=== PATIENT | female | born 1960 | race Caucasian/White ===

== ENCOUNTER → 2018-01-23 16:49 | Outpatient (CLI) | payer OTHER, SELFPAY ==
--- NOTE | 2018-01-23 16:51 | MM_ITS ---
MM Dig screening mamm BI w/CAD ORDERING PHYSICIAN : Taiwo Sandoval MD PATIENT AGE: 57 years GENDER: Female COMPARISON: June 2015, April 2010, April 2009 INDICATION: ITS.REASON: Routine Screening Mammorgram no hormones. No new complaints. Family history: paternal aunt with breast cancer TECHNIQUE: Standard CC and MLO images were obtained. R2 CAD reviewed. FINDINGS: Minimal residual fibroglandular elements. No dominant mass nor suspicious calcifications in either breast. . No significant change since previous studies bilateral follow-up in one year the adequate . IMPRESSION: Stable bilateral mammogram with no significant new findings. Bilateral follow-up in one year recommended. BI-RADS Category: 1 Negative RECOMMENDED FOLLOW-UP: 1YR 1 YEAR FOLLOW-UP (A letter has been sent to the patient regarding results of the study.)
== END ==
PROVIDERS: PCP Family Medicine; Visit Provider Nurse Practitioner Obstetrics & Gynecology
DX: Z12.31 Encounter for screening mammogram for malignant neoplasm of breast (principal)
CPT/HCPCS: 77067

== ENCOUNTER → 2019-03-29 15:13 | Outpatient (CLI) | payer OTHER, SELFPAY ==
--- NOTE | 2019-03-29 15:17 | MM_ITS ---
PROCEDURE: MM DIG SCREENING MAMM BI W/CAD CLINICAL INDICATION: screening mammogram There is a history of breast cancer patient's paternal aunt. COMPARISON: [facility] DIGITAL MAMM-SCREEN BILATERAL from 05/22/2010 [facility] DIG MAMM-SCREEN ARMANDO from 07/04/2015 [facility] MM Dig screening mamm BI w/CAD from 01/23/2018 TECHNIQUE: Standard CC and MLO images and 3D Tomosynthesis was obtained. R2 CAD reviewed. FINDINGS: Mild scattered fibroglandular densities are seen throughout both breast there is a benign-appearing calcification right breast. There is no suspicious lesion in either breast and no suspicious microcalcifications. Chris images were reviewed. IMPRESSION: Fibrofatty parenchyma with no suspicious lesions seen BI-RAD Category: 2 Benign Finding(s) FOLLOW-UP: 1YR 1 Year Follow-up (A letter has been sent to the patient regarding results of the study.) Dictated by: Dr. Errol Bagley MD 03/31/2019 09:[address] Errol Bagley MD in [place] 03/31/2019 09:14
== END ==
PROVIDERS: PCP Family Medicine; Visit Provider Nurse Practitioner Obstetrics & Gynecology
DX: Z12.31 Encounter for screening mammogram for malignant neoplasm of breast (principal)
CPT/HCPCS: 77063; 77067

== ENCOUNTER → 2019-04-19 12:19 | Outpatient (CLI) | payer OTHER, SELFPAY ==
--- NOTE | 2019-04-19 12:24 | XR_ITS ---
PROCEDURE: XR SHOULDER RT MIN 2V CLINICAL INDICATION: ACUTE RT SHOULDER PAIN . COMPARISON: No exams were available for comparison FINDINGS: No fracture, dislocation, lytic change, or blastic change evident. No significant degenerative change IMPRESSION: No acute findings. Dictated by: Michel Olivarez MD 04/19/2019 13:07 Electronically signed by Michel Olivarez MD in [place] 04/19/2019 13:07
== END ==
PROVIDERS: PCP Family Medicine; Visit Provider Nurse Practitioner
DX: M25.511 Pain in right shoulder (principal)
CPT/HCPCS: 73030

== ENCOUNTER → 2020-03-08 16:23 | Outpatient (CLI) | payer OTHER, SELFPAY ==
[2020-03-10 07:42] LABS: Covid-19 Nasal PCR Sendout P&C NEGATIVE
== END ==
PROVIDERS: PCP Family Medicine; Visit Provider Family Medicine
DX: Z11.52 Encounter for screening for COVID-19 (principal)
CPT/HCPCS: U0004

== ENCOUNTER → 2020-03-22 12:13 | Outpatient (CLI) | payer OTHER, SELFPAY ==
[2020-03-23 08:03] LABS: Covid-19 Nasal PCR Sendout P&C Negative
== END ==
PROVIDERS: PCP Family Medicine; Visit Provider Family Medicine
DX: Z20.822 Contact with and (suspected) exposure to COVID-19 (principal)
CPT/HCPCS: U0004

== ENCOUNTER → 2020-06-26 12:10 | Outpatient (CLI) | payer OTHER, SELFPAY | PROVIDERS: PCP Family Medicine; Visit Provider Nurse Practitioner Family | DX: Z20.822 Contact with and (suspected) exposure to COVID-19 (principal) | CPT/HCPCS: U0003 ==

== ENCOUNTER → 2020-09-03 08:14 | Outpatient (CLI) | payer OTHER, SELFPAY ==
[2020-09-03 08:36] LABS: Basophils # 0.1 K/mm3 (0-0.2); Basophils % 0.8 % (0.1-2.0); Eosinophils # 0.2 K/mm3 (0.0-0.4); Eosinophils % 2.1 % (0.1-12.0); Hemoglobin 14.9 g/dL (12.2-16.2); Lymphocytes % 22.9 % (10-50); Mean Corpuscular HGB Conc 33.9 g/dL (31.8-35.4); Mean Corpuscular Hemoglobin 31.3 pg (27.0-31.2); Mean Corpuscular Volume 92.4 fl (81-99); Mean Platelet Volume 8.8 fl (7.4-10.4); Monocytes # 0.4 K/mm3 (0.1-1.0); Monocytes % 4.6 % (1.7-9.3); Neutrophils # 6.1 K/mm3 (1.8-7.8); Neutrophils % 69.6 % (37.0-80.0); Platelet Count 206 K/mm3 (142-424); Red Blood Count 4.76 M/mm3 (4.20-5.40); White Blood Count 8.7 K/mm3 (4.8-10.8)
[2020-09-03 09:08] LABS: Alanine Aminotransferase 44 U/L (12-78); Albumin Level 4.1 g/dl (3.5-5.0); Albumin/Globulin Ratio 1.5 (1.1-1.8); Alkaline Phosphatase 79 U/L (38-126); Anion Gap 13.6 mEq/L (5-15); Aspartate Amino Transferase 47 U/L (14-36); Blood Urea Nitrogen 12 mg/dl (7-17); Calcium 8.8 mg/dl (8.4-10.2); Carbon Dioxide 26 mmol/L (22.0-30.0); Chloride 106 mmol/L (98-107); Cholesterol 101 mg/dl (140-200); Estimated Glomerular Filt Rate 85 ml/min (>60); GFR (African American) 103 ML/MIN (>60); Globulin 2.7 g/dL (1.3-3.2); Glucose 98 mg/dl (74-100); Potassium 4.6 mmoL/L (3.5-5.1); Sodium 141 mmol/L (136-145); Total Protein,Serum 6.8 g/dl (6.3-8.2); Triglycerides 101 mg/dl (30-150); VLDL Cholesterol 20 mg/dL (0-40)
[2020-09-03 09:19] LABS: Direct LDL Cholesterol 38.21 mg/dL (100-129)
[2020-09-03 09:24] LABS: Chol/HDL Ratio 2.3 (1-3.5); HDL Cholesterol 43 mg/dl (40-60)
== END ==
PROVIDERS: Visit Provider Nurse Practitioner Obstetrics & Gynecology
DX: Z01.419 Encounter for gynecological examination (general) (routine) without abnormal findings (principal); R53.82 Chronic fatigue, unspecified
CPT/HCPCS: 36415; 80053; 80061; 82306; 85025

== ENCOUNTER → 2021-09-20 11:40 | Outpatient (CLI) | payer OTHER, SELFPAY ==
--- NOTE | 2021-09-20 11:51 | XR_ITS ---
FINAL REPORT CLINICAL HISTORY: COVID, smoker, hx of stents FINDINGS: A portable view of the chest is obtained. Cardiac and mediastinal silhouettes are normal. There are bilateral mid lung nodules which are likely calcified. There is underlying emphysema. There is no pleural effusion or pneumothorax. IMPRESSION: No acute process on this portable exam. Reviewed, Interpreted and Dictated by Vesta Obregon MD Transcribed by Zoie Thomas Authenticated and . [facility]
== END ==
PROVIDERS: PCP Nurse Practitioner Family; Visit Provider Nurse Practitioner Family
DX: U07.1 COVID-19 (principal); J18.9 Pneumonia, unspecified organism; Z72.0 Tobacco use
CPT/HCPCS: 71045

== ENCOUNTER 2022-02-05 07:30 | Day surgery (SDC) | payer OTHER, SELFPAY ==
[2022-02-05 08:04] VITALS: BP 136/84; PULSE 75; RESP 18; TEMP 36.2; O2SAT 92; BMI 26.0
--- NOTE | 2022-02-05 08:05 | P.PN_ITS ---
[facility] Disclaimer: The information contained in this section may have been updated after the patient was seen, as this information can be updated by other users. Medical History History of CAD (coronary artery disease) History of chronic hypertension HLD (hyperlipidemia) Surgical History Hx of cholecystectomy Hx of total knee replacement Hx of tubal ligation Family History Other Family history of COPD (chronic obstructive pulmonary disease) Family history of cancer Family history of heart disease Social History Smoking Status: Current every day smoker alcohol intake: never substance use type: denies use current occupational status: employed Travel in the last 8 weeks: Inside the [place] [facility] Anesthesia Checklist Patient Identification Patient Identification: Arm Band and Verbal (Name & ) Structural Data Admitted From: Home Planned Operative Procedure/s: Colonoscopy Consent for Planned Operative Procedure(s) Verified: Yes NPO Status Verified Time NPO: 00:00 Airway Assessment C-Spine Mobility Assessed: Yes TMJ Mobility Assessed: Yes Dentition: Good Dentition Neurological Assessment Level of Consciousness: Awake Hx Seizures: No Numbness or tingling in extremities: No Anesthesia Plan Anesthesia Risk discussed: Yes Anesthesia Plan: Verified ASA Class: III Anesthesia Type: MAC
[2022-02-05 08:24] VITALS: O2SAT 92
[2022-02-05 09:14] VITALS: BP 127/64; PULSE 102; RESP 16; TEMP 36.6; O2SAT 95
--- NOTE | 2022-02-05 09:14 | HMH.SCOPE ---
Procedure: Date: 02/05/22 Patient Date of :: 1960 Procedure Performed:: Colonoscopy with polypectomy Indications:: Screening Performing Provider:: Alex Vieira MD Referring Provider:: . Sedation:: Monitored anesthesia care Procedure:: After informed consent was obtained the patient was taken to the endoscopy suite. Sedation ensued after the patient was transferred to the left lateral decubitus position. Pulse, blood pressure, and oxygen saturation were monitored throughout the procedure. Digital rectal exam revealed no significant abnormality. The colonoscope was placed in position. The entire colon was evaluated. The colonoscope was carefully removed and the patient was transferred to recovery in stable condition. Please see findings and specimens below for detail. Findings:: Bowel preparation fairly poor Moderate spasticity/lack of relaxation Hemorrhoidal cushions Adjacent polyps at 15 cm Specimens:: Adjacent polyps at 15 cm (cold snare) Recommendations:: Timing of repeat colonoscopy is pending pathology but likely be around 2 years with extended bowel preparation. Complications:: No immediate Estimated blood obtained (mL): 1
[2022-02-05 09:24] VITALS: BP 114/83; PULSE 90; RESP 16; O2SAT 96
[2022-02-05 09:34] VITALS: BP 102/70; BP 125/54; PULSE 85; PULSE 87; PULSE 88; RESP 16; O2SAT 97; O2SAT 99
[2022-02-05 09:51] VITALS: BP 114/71; PULSE 83; RESP 16; O2SAT 93
== END 2022-02-05 10:05 | disposition home or self-care (01) ==
PROVIDERS: PCP Nurse Practitioner Family; Visit Provider Surgery
PROC: 0DJD8ZZ Inspection of Lower Intestinal Tract, Via Natural or Artificial Opening Endoscopic (ICD-10-PCS; CPT 45385; principal; 2022-02-05 08:30)
DX: Z12.11 Encounter for screening for malignant neoplasm of colon (principal); K63.5 Polyp of colon; Z72.0 Tobacco use; Z86.010 Personal history of colon polyps
CPT/HCPCS: 45385; J2704

== ENCOUNTER 2023-05-01 15:11 | Outpatient (CLI) | payer OTHER, SELFPAY ==
[2023-05-01 15:38] LABS: Basophils # 0.1 K/mm3 (0-0.2); Basophils % 1.1 % (0.1-2.0); Eosinophils # 0.1 K/mm3 (0.0-0.4); Eosinophils % 2.1 % (0.1-12.0); Hematocrit 47.5 % (37.0-47.0); Hemoglobin 15.5 g/dL (12.2-16.2); Lymphocytes # 2.5 K/mm3 (0.7-4.5); Lymphocytes % 42.6 % (10-50); Mean Corpuscular HGB Conc 32.6 g/dL (31.8-35.4); Mean Corpuscular Hemoglobin 31.5 pg (27.0-31.2); Mean Corpuscular Volume 96.7 fl (81-99); Mean Platelet Volume 8.6 fl (7.4-10.4); Monocytes # 0.4 K/mm3 (0.1-1.0); Monocytes % 6.4 % (1.7-9.3); Neutrophils # 2.8 K/mm3 (1.8-7.8); Neutrophils % 47.8 % (37.0-80.0); Platelet Count 224 K/mm3 (142-424); Red Blood Count 4.91 M/mm3 (4.20-5.40); Red Cell Distribution Width 13.5 % (11.5-17.5); White Blood Count 5.8 K/mm3 (4.8-10.8)
[2023-05-01 16:15] LABS: C-Reactive Protein 4.7 mg/L (0-4)
[2023-05-01 16:16] LABS: Erythrocyte Sedimentation Rate 12 mm/hr (0-30)
== END 2023-05-01 23:59 ==
LOC: LAB 15:15
PROVIDERS: PCP Nurse Practitioner; Visit Provider Specialist
DX: R51.9 Headache, unspecified (principal)
CPT/HCPCS: 36415; 85025; 85651; 86140

== ENCOUNTER 2023-06-02 12:20 | Outpatient (CLI) | payer OTHER, SELFPAY ==
[2023-06-02 13:31] LABS: Blood Urea Nitrogen 9 mg/dl (7-17); Estimated Glomerular Filt Rate 101 ml/min (>60); GFR (African American) 122 ML/MIN (>60)
== END 2023-06-02 23:59 ==
PROVIDERS: PCP Nurse Practitioner; Visit Provider Specialist
DX: Z01.812 Encounter for preprocedural laboratory examination (principal)
CPT/HCPCS: 36415; 82565; 84520

== ENCOUNTER 2023-06-03 18:48 | Outpatient (CLI) | payer OTHER, SELFPAY ==
--- NOTE | 2023-06-03 18:55 | MR_ITS ---
PROCEDURE INFORMATION: Exam: MR Head Without and With Contrast Exam date and time: 06/03/2023 7:03 PM Age: 63 years old Clinical indication: Pain; Headache; Additional info: Severe headache following uri, covid, sinusitis TECHNIQUE: Imaging protocol: Magnetic resonance imaging of the head without and with contrast. Contrast material: PROHANCE; Contrast volume: 14 ml; Contrast route: IV; COMPARISON: No relevant prior studies available. FINDINGS: Brain: A few scattered small foci of T2 prolongation within the periventricular and subcortical white matter of the supratentorial brain without restricted diffusion. Remainder of the brain parenchyma demonstrates normal signal intensity and enhancement without an intra- or extra-axial mass or abnormality. No mass effect or midline shift. Cerebral ventricles: Ventricles and sulci are mildly dilated without evidence of hydrocephalus. Bones/joints: Chronic degenerative changes in the visualized upper cervical spine. Paranasal sinuses: Trace fluid level in the RIGHT maxillary sinus. Mastoid air cells: No mastoid effusion. Soft tissues: Midline brain structures including the corpus callosum, pituitary gland, pineal region, and craniovertebral junction are unremarkable. Intracranial vessels demonstrate a normal flow-void. IMPRESSION: 1. Unremarkable study without a supra-, infratentorial mass or abnormality. 2. No evidence of hemorrhagic or ischemic infarct and no hydrocephalus.
[2023-06-03] MEDS: SODIUM CHLORIDE 0.9% 10ML SYR (RAD ONLY) 10 ML IV (19:49)
[2023-06-03] MEDS: GADOTERIDOL INJ 17ML SYRINGE 14 ML IV (19:49)
== END 2023-06-03 23:59 ==
LOC: RAD 18:55
PROVIDERS: PCP Nurse Practitioner; Visit Provider Specialist
DX: R51.9 Headache, unspecified (principal)
CPT/HCPCS: 70553; A9576

== ENCOUNTER 2023-07-02 16:20 | Outpatient (CLI) | payer SELFPAY ==
--- NOTE | 2023-07-02 16:24 | XR_ITS ---
PROCEDURE INFORMATION: Exam: XR Cervical Spine Exam date and time: 07/02/2023 4:28 PM Age: 63 years old Clinical indication: Neck pain TECHNIQUE: Imaging protocol: Radiologic exam of the cervical spine. Views: 4 or 5 views. Total images: 7 COMPARISON: MR HEAD/BRAIN WO/W CON 06/03/2023 7:03 PM FINDINGS: Bones/joints: The cervical spine demonstrates mild degenerative changes at multiple levels. Disc space narrowing noted C3-C4, C4-C5 and C5-C6. No evidence of acute fracture. Neural foramina appear patent bilaterally. 2 mm anterolisthesis of C4 on C5 with flexion. No changes of the cervical spine with extension. Soft tissues: Prevertebral soft tissues are within normal limits. IMPRESSION: 1. The cervical spine demonstrates mild degenerative changes at multiple levels. 2. No evidence of acute fracture. 3. Prevertebral soft tissues are within normal limits. 4. 2 mm anterolisthesis of C4 on C5 with flexion.
== END 2023-07-02 23:59 | disposition home or self-care (01) ==
PROVIDERS: PCP Nurse Practitioner; Visit Provider Specialist
DX: G44.86 Cervicogenic headache (principal)
CPT/HCPCS: 72052

== ENCOUNTER 2023-07-17 14:44 | Outpatient (CLI) | payer MEDICAID, SELFPAY ==
[2023-07-17 14:39] LABS: Microscopic, Urine URINE MICROSCOPIC (MICROSCOPIC)
[2023-07-17 15:15] LABS: Basophils # 0.1 K/mm3 (0-0.2); Basophils % 1.1 % (0.1-2.0); Eosinophils # 0.1 K/mm3 (0.0-0.4); Eosinophils % 1.5 % (0.1-12.0); Hematocrit 47.4 % (37.0-47.0); Hemoglobin 15.6 g/dL (12.2-16.2); Lymphocytes # 1.6 K/mm3 (0.7-4.5); Lymphocytes % 29.2 % (10-50); Mean Corpuscular Hemoglobin 31.8 pg (27.0-31.2); Mean Corpuscular Volume 96.3 fl (81-99); Mean Platelet Volume 10.9 fl (7.4-10.4); Monocytes # 0.3 K/mm3 (0.1-1.0); Monocytes % 6.1 % (1.7-9.3); Neutrophils # 3.4 K/mm3 (1.8-7.8); Neutrophils % 62.1 % (37.0-80.0); Platelet Count 169 K/mm3 (142-424); Red Blood Count 4.92 M/mm3 (4.20-5.40); Red Cell Distribution Width 13.9 % (11.5-17.5); White Blood Count 5.5 K/mm3 (4.8-10.8)
[2023-07-17 15:26] LABS: Appearance,Urine CLEAR (Clear); Bilirubin,Urine Negative (Negative); Blood, Urine Negative (Negative); Color,Urine YELLOW (Yellow); Glucose,Urine (UA) Negative (Negative); Ketones,Urine Negative (Negative); Leukocyte Esterase,Urine Negative (Negative); Nitrate,Urine Negative (Negative); Protein,Urine Negative (Negative); Specific Gravity, Urine 1.015 (1.005-1.030); Urobilinogen,Urine 0.2 EU/dl (0.2)
[2023-07-17 15:36] LABS: Alanine Aminotransferase 19 U/L (12-78); Albumin Level 3.9 g/dl (3.5-5.0); Albumin/Globulin Ratio 1.3 (1.1-1.8); Alkaline Phosphatase 82 U/L (38-126); Anion Gap 12.4 mEq/L (5-15); Aspartate Amino Transferase 37 U/L (14-36); Bilirubin,Total 0.8 mg/dl (0.2-1.3); Blood Urea Nitrogen 15 mg/dl (7-17); Calcium 9.2 mg/dl (8.4-10.2); Carbon Dioxide 27 mmol/L (22.0-30.0); Chloride 105 mmol/L (98-107); Chol/HDL Ratio 2.3 (1-3.5); Cholesterol 129 mg/dl (140-200); Estimated Glomerular Filt Rate 72 ml/min (>60); GFR (African American) 88 ML/MIN (>60); Globulin 2.9 g/dL (1.3-3.2); Glucose 87 mg/dl (74-100); HDL Cholesterol 55 mg/dl (40-60); Potassium 4.4 mmoL/L (3.5-5.1); Sodium 140 mmol/L (136-145); Total Protein,Serum 6.8 g/dl (6.3-8.2); Triglycerides 135 mg/dl (30-150); VLDL Cholesterol 27 mg/dL (0-40)
[2023-07-17 15:48] LABS: Bacteria,Urine Trace /lpf; Squamous Epithelial Cell,Urine Occasional #/hpf (0-5)
[2023-07-17 16:00] LABS: 25-OH Vitamin D, Total 58.6 ng/mL (30-100); Direct LDL Cholesterol 62.24 mg/dL (100-129)
[2023-07-17 16:01] LABS: Free T4 (Free Thyroxine) 0.91 ng/dl (0.78-2.19)
[2023-07-17 16:15] LABS: Hemoglobin A1C 5.5 % (4.0-6.0)
[2023-07-17 16:17] LABS: Thyroid Stimulating Hormone 0.47 uIU/mL (0.465-4.68)
[2023-07-17 16:21] LABS: Ferritin 69.6 ng/ml (11.1-264)
[2023-07-17 16:36] LABS: Vitamin B12 968 pg/mL (239-931)
[2023-07-17 16:46] LABS: Iron 112 ug/dL (37-170)
[2023-07-17 16:55] LABS: Total Iron Binding Capacity 289 ug/dL (265-497)
== END 2023-07-17 23:59 | disposition home or self-care (01) ==
LOC: LAB.DROPOF 14:44
PROVIDERS: PCP Nurse Practitioner Family; Visit Provider Nurse Practitioner Family
DX: R53.83 Other fatigue (principal); I10 Essential (primary) hypertension; Z13.1 Encounter for screening for diabetes mellitus; E78.5 Hyperlipidemia, unspecified; Z72.0 Tobacco use; Z79.899 Other long term (current) drug therapy
CPT/HCPCS: 80053; 80061; 81001; 82306; 82607; 82728; 83036; 83540; 83550; 84156; 84439; 84443; 85025; 87086

== ENCOUNTER 2023-07-22 13:26 | Outpatient (CLI) | payer MEDICAID, SELFPAY ==
--- NOTE | 2023-07-22 13:27 | CT_ITS ---
FINAL REPORT CLINICAL HISTORY: lung cancer screening smoker 30 years, smoke 1 ppd FINDINGS: CT CHEST LOW-DOSE LUNG SCREENING HISTORY: Current smoker. [id number] history. COMPARISON:None. TECHNIQUE: Axial images were obtained from the lung apices through the mid abdomen by computed tomography without the administration of contrast, per lung cancer screening protocol. CTDI: 2.90 mGy DLP: 96.38 mGy/cm FINDINGS: The lungs demonstrate moderate changes of centrilobular emphysema. There is a spiculated nodule in the right upper lobe. This measures 5 mm. The finding is best seen on image 31 of series 4. There is a 2.0 x 1.3 cm spiculated mass in the superior segment of the left lower lobe. This is best seen on image 42 of series 4. There is no thoracic lymphadenopathy. There is no pleural or pericardial effusion. Limited evaluation of the upper abdomen is without acute abnormality. IMPRESSION: 2 cm spiculated mass in the left lower lobe and 5 mm spiculated nodule in the right upper lobe. LUNG RADS category 4B. Recommend tissue sampling and/or PET CT scan. Reviewed, Interpreted and Dictated by Jesus Duke MD Transcribed by Lucia Velasquez PA-C Authenticated and [facility]
== END 2023-07-22 23:59 | disposition home or self-care (01) ==
PROVIDERS: PCP Nurse Practitioner Family; Visit Provider Nurse Practitioner Family
DX: Z12.2 Encounter for screening for malignant neoplasm of respiratory organs (principal); F17.210 Nicotine dependence, cigarettes, uncomplicated
CPT/HCPCS: 71271

== ENCOUNTER 2023-08-11 14:00 | Outpatient (RCR) | payer MEDICAID, SELFPAY ==
--- NOTE | 2023-06-16 11:44 | HMH.PTOPEV ---
PT Outpatient Evaluation Rehab PT Outpatient Evaluation Start: 06/16/23 09:55 Freq: Status: Active Protocol: Document 06/16/23 09:55 YOAN (Rec: 06/16/23 11:44 YOAN [id number]) E-signed By Sonja Ngo, PT Outpatient Therapy Subjective History Subjective History Pt is a 63 y/o female who reports chronic neck pain/ headaches since 03/13/2023 when she was diagnosed with Covid- 19. Pt denies hospitalization for illness. Pt reports when she was sick with Covid, her right eye swelled shut and she had difficulty hearing out of the right ear. Pt reports her right eye continues to swell intermittently often leading to difficulty opening her eye and light sensitivity. Pt denies numbness/tingling of her face but does report hypersensitivity to light touch of her face and scalp. Pt reports she had an front facer evaluation recently without significant findings, states she was told her eye was swelling due to allergies and is taking medication for his. Pt also reports constant right-sided neck pain that refers to the back of her right occiput and into her right shoulder since onset of Covid-19. Pt reports pain has recently started to refer farther into her shoulder, denies pain in her elbow or wrist. Pt reports intermittent numbness/tingling of the right thumb and index finger. Pt also reports she has noticed intermittent shaking of her neck and right arm. Pt denies difficulty chewing/swallowing, nausea/ vomiting, fever or night sweats. Pt denies having imaging of her neck but states she did have a brain MRI without significant findings. Pt reports she is also experiencing headaches 1-2x/ week with report of pressure in the sinuses and burning of both ears. Pt also reports intermittent light/noise sensitivity, mild dizziness, and seeing floaters with headaches as well. Pt reports some headaches are more severe than others, when severe she has to rest because it impairs her concentration. Pt reports pain is aggravated by turning her head to the right such as with driving, lifting, and looking down such as with reading or working on the computer. Pt reports she was prescribed Gabapentin which she states has seemed to help with headaches and neck pain. 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 Right-handed Medical History: Arthritis, History of heart attack, History of migraine, HLD, History of chronic hypertension, History of CAD, R lazy eye correction surgery when she was 5 y/o Forward head posture noted with increased thoracic kyphosis Facial sensation equal and intact to light touch sensation Negative Tromners New diagnosis of cancer in past 12 No months? Chief Complaint Pain,Stiff,Paresthesia Symptom Type Throb,Sharp,Dull,Burning, Tingling Symptoms Relieved By Rest/Positioning,Heat, Prescription Meds Symptoms Aggravated By Physical Activity,Lifting Current Functional Limitations Lifting,Housework,Driving, Sleeping Symptom Description Constant but Variable Level of pain today (0-10) 4 Pain scale - at its best (0-10) 3 Pain scale - at its worst (0-10) 10 Cervical Eval Palpation Cervical Muscles R Cervical Paraspinal,L Cervical Paraspinal,R Suboccipital,L Suboccipital,R SCM,L SCM,R Upper Trapezius,L Upper Trapezius Cervical/Thoracic Palpation Findings Tenderness,Muscle Guarding Flexibility Deficits Upper Trapezius Muscle Length (R) Moderate Tightness,(L) Moderate Tightness Levaetor Scapulae Muscle Length (R) Moderate Tightness,(L) Moderate Tightness Scalene Group Muscle Length (R) Moderate Tightness,(L) Moderate Tightness Sternocleidomastoid Muscle Length (R) Moderate Tightness,(L) Moderate Tightness Pectoralis Major Muscle Length (R) Moderate Tightness,(L) Moderate Tightness Pectoralis Minor Muscle Length (R) Moderate Tightness,(L) Moderate Tightness Passive Joint Mobility Cervical PIVM Dec: R C2/3 L C2/3 R C3/4 L C3/4 R C4/5 L C4/5 R C5/6 L C5/6 R C6/7 L C6/7 AROM Cervical Spine Extension Active Range of 30 Motion (degrees) Cervical Spine Flexion Active Range of 30 Motion (degrees) Cervical Spine Right Lateral Flexion 20 Active Range of Motion (degrees) Cervical Spine Left Lateral Flexion 30 Active Range of Motion (degrees) Cervical Spine Right Rotation Active 20 Range of Motion (degrees) Cervical Spine Left Rotation Active 40 Range of Motion (degrees) MMT Bilateral Deltoid (C5) 4 Good Biceps Brachii Strength Grade 4 Good Wrist Extension Strength Grade 5 Normal Triceps Brachii Strength Grade 5 Normal Wrist Flexion Strength Grade 5 Normal Extensor Pollicis Longus Strength Grade 5 Normal Finger Abduction Strength Grade 5 Normal DTR Rt Biceps 2+ Rt Brachioradialis 2+ Rt Triceps 2+ Altered Sensation Bilateral Upper extremity Dermatomes C4,C5 Comment decreased light touch R compared to L Special Test C-Spine Foraminal Compression ([place]) Negative Right Test C-spine Verterbral Accessory Movements Central P/A [place],Right P/A that Elicit Symptoms [place],Left P/A [place] C-Spine Compression Test Negative Right Wrist/Hand Eval Therapeutic Recreation Assistant/Pinch Strength Left Therapeutic Recreation Assistant Strength Measurement (lbs) 38 Right Therapeutic Recreation Assistant Strength Measurement (lbs) 44 Neck Disability Index Neck Disability Index Section 1: Pain Intensity The pain is fairly severe at the moment Section 2: Personal Care (washing, I can look after myself dressing, etc.) normally but it causes extra pain Section 3: Lifting I can lift heavy weights but it gives extra pain Section 4: Reading I can read as much as I want with moderate pain in my neck Section 5: Headaches I have moderate headaches, which come frequently Section 6: Concentration I can concentrate fully when I want to with slight difficulty Section 7: Work I can only do my usual work, but no more Section 8: Driving I can drive my car as long as I want with moderate pain in my neck Section 9: Sleeping My sleep is midly disturbed (1 -2 hrs sleepless) Section 10: Recreation I am able to engage in most, but not all of my usual recreation NDI Score 18 Outpatient Therapy Assessment Impairments Problems/Impairmments Palpation Tenderness,Impaired Range of Motion,Impaired Strength,Impaired Driving, Impaired Lifting,Impaired Household Care,Impaired Recreational Activities, Impaired Work Activities, Subjective C/O Pain,Impaired Self Care/Self Management Prognosis Rehab Potential Good Comment Barrier to progress includes pt only able to attend PT 1x/ week due to financial reasons Clinical Impression Consistent with Diagnosis Yes Short Term Goals Number of Weeks 3 Increase Range of Motion Yes: Improve cervical AROM by at least 5 degrees ea plane Decrease Subjective C/O Pain Yes: Improve pain at worst to 8/10 to improve overall QOL Improve Self Care/Self Management Yes Patient to be Ind w/ HEP Yes Penitentiary Goals Number of Weeks 6 Decreased Palpation Tenderness Yes: 1-2/4 TTP of cervical SP/ TP, cervical mm Increase Range of Motion Yes: Improve cervical AROM flex/ext to 45, LF to 45, rot to 50-60 Increase Strength Yes: Improve BUE MMT to 4+-5/5 grossly to assist with function Restore Ability to Lift Objects to Waist Yes: 15-20# with neck pain 6/ Level 10 or less to assist with occupation Improve Neck Disability Index Score Yes: Improve score to 13 or less to improve overall QOL Decrease Subjective C/O Pain Yes: Improve pain at worst to 6/10 to improve overall QOL Patient to be Ind w/ Advanced HEP Yes Outpatient Therapy Plan of Care Treatment Plan May Include Therapeutic Exercise Including Home Yes Exercise Program Manual Therapy Techniques Yes Neuromuscular Re-education Yes Therapeutic Activities to Return to Yes Previous Functional/Work Level ADL/Self Care Education Yes Mechanical Traction Yes Dry Needling Yes Thermal Modalities Yes Electrical Stimulation Yes Ultrasound/Phonophoresis Yes Iontophoresis Yes Massage Yes Eval/Re-Eval Yes Frequency Times per week 2 Duration Number of Weeks 4-6 Addendums This patient is a candidate for social No or vocational rehab? Patient/Guardian verbally acknowledges Yes understanding of treatment program and consents to further treatment? Patient/Guardian verbally acknowledges Yes understanding of diagnosis, prognosis and goals for treatment? Eval Complexity PT Charges 10532 - Moderate Complexity Shoulder/Elbow Eval Shoulder Objective Measurements Elbow Objective Measurements PHYSICIAN CERTIFICATION: I certify the specified therapy services for Anisha Geiger are required, authorized, and reviewed every 30 days.
--- NOTE | 2023-07-16 11:57 | HMH.RHREAS ---
Rehab Reassessment Rehab OP Re-assessment Start: 06/16/23 09:55 Freq: Status: Active Protocol: Document 07/16/23 09:59 YOAN (Rec: 07/16/23 11:57 YOAN [id number]) E-signed By Sonja Ngo PT Neck Disability Index Neck Disability Index Section 1: Pain Intensity The pain is fairly severe at the moment Section 2: Personal Care (washing, I can look after myself dressing, etc.) normally without causing extra pain Section 3: Lifting I can lift heavy weights but it gives extra pain Section 4: Reading I can read as much as I want with moderate pain in my neck Section 5: Headaches I have moderate headaches, which come infrequently Section 6: Concentration I have a fair degree of difficulty in concentrating when I want to Section 7: Work I can do most of my usual work , but no more Section 8: Driving I can drive my car as long as I want with moderate pain in my neck Section 9: Sleeping My sleep is midly disturbed (1 -2 hrs sleepless) Section 10: Recreation I am able to engage in most, but not all of my usual recreation NDI Score 18 Rehab Re-assessment Subjective Subjective Pt reports she feels 30% improved since starting PT. Pt reports continued neck pain that often refers into the top of the R shoulder rated 6/10 at worst. Pt also reports intermittent burning & numbness/tingling from the right side of the neck to the thumb and middle finger that varies in duration. Pt reports headaches 4x/week from the right occipital region to her forehead with intensity rated 8/10 at worst causing nausea and altered concentration. Pt also reports intermittent burning of the right side of the inside of her lips, gums and tongue and increased pressure of the right ear. Pt reports diminished taste and some difficulty swallowing. Pt reports she has been trying to schedule a dentist appointment but has had issues with her insurance. Pt reports some dizziness with quick movements especially with pressure in the ear, denies falls or LOC. Pt reports continued swelling of her R eye despite taking allergy medication. Pt had a cervical spine flexion/ extension radiograph on 07/02/23 with impression of 1.The cervical spine demonstrates mild degenerative changes at multiple levels. 2.No evidence of acute fracture. 3. Prevertebral soft tissues are within normal limits. 4.2 mm anterolisthesis of C4 on C5 with flexion. Pt denies having a MRI of her neck. Pt reports she returns to her neurologist 09/08/23. Objective Objective Notes Cervical AROM: flex 25, ext 25 , RLF 12, LLF 30, L rot 35, Rrot 20 (tremors noted at end ranges and following mobility assessment) Negative myoclonus, Tromners Facial muscles and sensation intact, no tongue deviations noted Assessment Assessment Notes Pt has attended 3 PT treatment sessions since her initial evaluation performed on . Pt is only able to attend PT 1x/week due to financial issues although was provided with a HEP and reports compliance. Pt reported slight improvement in subjective report of pain overall; however, demonstrate no objective improvements in NDI or R cervical AROM. Pt demonstrates tremor like movement of the head/arms with cervical and UE movements. Pt also continues to report R ear pain/pressure, R eye swelling and R sided paresthesia of her tongue/gums /lips. Due to report neurological symptoms, recommend cervical spine MRI to rule out more sinister conditions. Overall, the pt would continue to benefit from skilled to improve pain severity, cervical AROM, strength/stability, and functional activity tolerane to improve overall QOL. Patient goals met ST/4 Goals Not Met cervical AROM, LTG Revised Goals n/a Plan Plan Continue initial POC. Recommend cervical spine MRI. Frequency of Therapy 1-2x/week Duration of therapy 4 more weeks Time and Billing Re-Eval Time 20 Re-Eval Billing Units 1 PHYSICIAN CERTIFICATION: I certify the specified therapy services for Anisha Geiger are required, authorized, and reviewed every 30 days.
--- NOTE | 2023-08-11 15:13 | HMH.RHREAS ---
Rehab Reassessment Rehab OP Re-assessment Start: 06/16/23 09:55 Freq: Status: Active Protocol: Document 08/11/23 14:00 SKYEDELFIN (Rec: 08/11/23 15:13 YOAN [id number]) E-signed By Sonja Ngo PT Neck Disability Index Neck Disability Index Section 1: Pain Intensity The pain is moderate at the moment Section 2: Personal Care (washing, I can look after myself dressing, etc.) normally but it causes extra pain Section 3: Lifting I can lift heavy weights but it gives extra pain Section 4: Reading I can read as much as I want with moderate pain in my neck Section 5: Headaches I have moderate headaches, which come infrequently Section 6: Concentration I can concentrate fully when I want to with no difficulty Section 7: Work I can do most of my usual work , but no more Section 8: Driving I can drive my car as long as I want with moderate pain in my neck Section 9: Sleeping My sleep is midly disturbed (1 -2 hrs sleepless) Section 10: Recreation I am able to engage in a few of my usual recreation activities because NDI Score 17 Rehab Re-assessment Subjective Subjective Pt reports no overall change in symptoms or pain since starting PT. Pt reports daily 5/10 right-sided neck pain that often refers into her right shoulder. Pt reports headaches have been bearable lately. Pt also reports intermittent numbness/tingling of B ring and pinky fingers that seems to be worse at night time. Pt also reports spasms of the R thumb and index fingers, denies numbness /tingling of these digits. Pt also continues to reports intermittent numbness of the right side of her lips, tongue and gums and UE tremors with movements. Pt reports she is to return to Dr. Starr in mid August although is only off work until 09/01/23. Pt reports compliance with HEP. Objective Objective Notes Palpation: 3/4 TTP of R UT/LS, mid-lower cervical spinous process Cervical AROM: flex 20, ext 25 , RLF 20, LLF 20, L rot 35, Rrot 20 (tremors of the neck noted at end ranges) - referred pain into the right shoudler with R lateral flexion Pt demonstrates BUE tremors with low level cervical mobility and UE strengthening exercises Assessment Progress Assessment Slower Than Expected Assessment Notes Pt has attended 7 PT treatment sessions consisting of cervical mobility, stretching, strengthening, postural re- education, neural glides and modalities. Pt is only able to attend PT 1x/week due to financial issues although was provided with a HEP and reports compliance. Pt demonstrated regression in AROM this date compared to the initial evaluation with only minimal subjective reports of improvement with pain and NDI score. Pt continues to demonstrate tremor like movement of her head and arms with cervical and UE movements . Pt also continues to report R ear pain/pressure, R eye swelling and R sided paresthesia of her tongue/gums /lips. Due to lack of overall progress with conservative care and continued report of neurological symptoms, will discharge pt from PT at this time and refer back to MD for further treatment options. Patient goals met ST/4 LT/7 Goals Not Met TTP, cervical AROM, UE/scap strength, lifting, NDI score Revised Goals n/a Plan Plan Discharge. Refer back to MD for further treatment options, recommend cervical spine MRI. Time and Billing Re-Eval Time 15 Re-Eval Billing Units 1 PHYSICIAN CERTIFICATION: I certify the specified therapy services for Anisha Geiger are required, authorized, and reviewed every 30 days.
== END 2023-08-11 15:10 | disposition home or self-care (01) ==
LOC: PT 14:00
PROVIDERS: Visit Provider Specialist
DX: G44.86 Cervicogenic headache (principal)
CPT/HCPCS: 97010; 97014; 97035; 97110; 97163; 97164; G0283

== ENCOUNTER 2023-08-21 10:04 | Outpatient (CLI) | payer OTHER, SELFPAY ==
--- NOTE | 2023-08-21 10:05 | MM_ITS ---
PROCEDURE INFORMATION: Exam: MG Bilateral Screening 3D Mammography Exam date and time: 08/21/2023 9:59 AM Age: 63 years old Clinical indication: Screening examination; Additional info: Breast cancer screening . Family history of breast carcinoma. TECHNIQUE: Imaging protocol: Bilateral Screening tomosynthesis and 2D mammography including computer-aided detection (CAD) when performed. COMPARISON: 1. MG MM DIG SCREENING MAMM BI W/CAD 03/29/2019 3:34 PM 2. MG SCBI MM Dig screening mamm BI w/CAD 01/23/2018 5:01 PM 3. MG DMSB DIG MAMM-SCREEN ARMANDO 07/04/2015 3:34 PM FINDINGS: MAMMOGRAPHY: Breast composition: There are scattered areas of fibroglandular density. Mass: No suspicious masses. Architectural distortion: No suspicious distortion. Calcifications: No suspicious calcifications. Asymmetric density: None. Skin thickening: None. Axillary adenopathy: None. IMPRESSION: No mammographic evidence of malignancy. Annual screening is recommended unless otherwise clinically indicated. ASSESSMENT: BI-RADS Category 1: Negative
== END 2023-08-21 23:59 | disposition home or self-care (01) ==
LOC: RAD 10:05
PROVIDERS: PCP Nurse Practitioner Family; Visit Provider Nurse Practitioner Family
DX: Z12.31 Encounter for screening mammogram for malignant neoplasm of breast (principal)
CPT/HCPCS: 77063; 77067

== ENCOUNTER 2023-09-15 09:02 | Outpatient (CLI) | payer OTHER, SELFPAY ==
--- NOTE | 2023-09-15 09:03 | XR_ITS ---
FINAL REPORT CLINICAL HISTORY: Screening osteoporosis FINDINGS: Using L1-4, the bone mineral density of the spine is 0.813 g/cm2, corresponding to T-score of -2.1 compatible with osteopenia. Using the left hip, the bone mineral density of the femoral neck is 0.722 g/cm2, corresponding to a T-score of -1.1 compatible with osteopenia. Using the right hip: The bone mineral density of the femoral neck is 0.767 g/cm2, corresponding to a T-score of -0.7 which is within the normal range. FRAX 10 year fracture risk is 7.9% for a hip fracture and 1.0% for a major osteoporotic fracture. IMPRESSION: Osteopenic bone mineral density of the lumbar spine and left femoral neck. Normal bone mineral density of the right femoral neck. NOTE: T-score: Standard deviation compared with peak bone mass of young adult mean. *Following the recommendations of the International Society of Bone densitometry, classification of hip BMD is based on the lower of two T-scores; total hip or femoral neck. Reviewed, Interpreted and Dictated by Kendra Fitzpatrick MD Transcribed by Patricia Abreu Authenticated and [facility]
== END 2023-09-15 23:59 | disposition home or self-care (01) ==
PROVIDERS: PCP Nurse Practitioner Family; Visit Provider Nurse Practitioner Family
DX: Z13.820 Encounter for screening for osteoporosis (principal)
CPT/HCPCS: 77080

== ENCOUNTER 2023-09-26 13:04 | Outpatient (CLI) | payer OTHER, SELFPAY ==
--- NOTE | 2023-09-26 13:04 | MR_ITS ---
FINAL REPORT CLINICAL HISTORY: neck pain, cervicogenic headache COMPARISON: None FINDINGS: Multi planar MR imaging was obtained of the cervical spine. There is abnormal decreased signal throughout the cervical discs. The vertebrae are of normal height. There is no malalignment. The cervical cord demonstrates normal signal and configuration. C2-C3: There is no evidence of significant disc bulge or protrusion. There is no significant facet hypertrophy. C3-C4: There is no evidence of significant disc bulge or protrusion. There is no significant facet hypertrophy. C4-C5: There is no evidence of significant disc bulge or protrusion. There is no significant facet hypertrophy. C5-C6: A mild annular bulge is present with mild central canal stenosis. C6-C7: A mild annular bulge is present with mild bilateral neural foraminal narrowing. C7-T1: There is no evidence of significant disc bulge or protrusion. There is no significant facet hypertrophy. Also noted is a 7 mm fluid signal focus in the left lobe of the thyroid gland, likely a colloid cyst. Thyroid ultrasound would confirm if clinically indicated. IMPRESSION: Mild degenerative change at the C5-6 and C6-7 levels as described above. 7 mm fluid signal focus left lobe of the thyroid gland, likely a colloid cyst. Thyroid ultrasound would be helpful for further evaluation as clinically indicated. Reviewed, Interpreted and Dictated by Jesus Duke MD Transcribed by Norma Tapia Authenticated and [facility]
== END 2023-09-26 23:59 | disposition home or self-care (01) ==
LOC: RAD 13:04
PROVIDERS: PCP Nurse Practitioner Family; Visit Provider Specialist
DX: M47.22 Other spondylosis with radiculopathy, cervical region (principal); G44.86 Cervicogenic headache; M54.2 Cervicalgia
CPT/HCPCS: 72141

== ENCOUNTER 2023-10-07 13:15 | Outpatient (CLI) | payer OTHER, SELFPAY ==
--- NOTE | 2023-10-07 13:15 | US_ITS ---
FINAL REPORT CLINICAL HISTORY: left thyroid nodule/cyst COMPARISON: MRI of the cervical spine dated 09/26/2023 FINDINGS: Sonographic images of the thyroid gland were obtained. The right thyroid lobe measures 49 mm. in length. The left thyroid lobe measures 51 mm. in length. The thyroid isthmus measures 3 mm. Multiple bilateral thyroid nodules are seen. The largest in the right lobe of the thyroid measures 9 mm in greatest diameter, is spongiform, a TI-RADS category 1 nodule. The largest nodule on the left measures 12 mm in size, is cystic and solid, isoechoic, a TI-RADS category 2 nodule. IMPRESSION: Multiple thyroid nodules are present, but secondary to size and appearance no follow-up is required at this time. Reviewed, Interpreted and Dictated by Yifan Tomlin III, MD Transcribed by Norma Tapia Authenticated and [facility]
== END 2023-10-07 23:59 | disposition home or self-care (01) ==
LOC: RAD 13:15
PROVIDERS: PCP Nurse Practitioner Family; Visit Provider Nurse Practitioner Family
DX: E04.1 Nontoxic single thyroid nodule (principal)
CPT/HCPCS: 76536

== ENCOUNTER 2023-12-09 10:24 | Outpatient (CLI) | payer OTHER, SELFPAY ==
[2023-12-09 11:12] LABS: Blood Urea Nitrogen 11 mg/dl (7-17); Estimated Glomerular Filt Rate 101 ml/min (>60); GFR (African American) 122 ML/MIN (>60)
== END 2023-12-09 23:59 | disposition home or self-care (01) ==
LOC: LAB 10:26
PROVIDERS: PCP Nurse Practitioner Family; Visit Provider Nurse Practitioner Family
DX: R91.8 Other nonspecific abnormal finding of lung field (principal)
CPT/HCPCS: 36415; 82565; 84520

== ENCOUNTER 2023-12-22 13:31 | Outpatient (CLI) | payer OTHER, SELFPAY ==
--- NOTE | 2023-12-22 13:31 | CT_ITS ---
PROCEDURE INFORMATION: Exam: CT Chest With Contrast; Diagnostic Exam date and time: 12/22/2023 1:45 PM Age: 63 years old Clinical indication: Condition or disease; Lung condition and disease; Other: Bilateral lung nodules TECHNIQUE: Imaging protocol: Diagnostic computed tomography of the chest with contrast. Radiation optimization: All CT scans at this facility use at least one of these dose optimization techniques: automated exposure control; mA and/or kV adjustment per patient size (includes targeted exams where dose is matched to clinical indication); or iterative reconstruction. Contrast material: ISOVUE; Contrast volume: 75 ml; Contrast route: IV; COMPARISON: CT LUNG SCREENING 07/22/2023 1:32 PM FINDINGS: Lungs: COPD with diffuse upper lobe emphysematous changes redemonstrated. 2.0 x 1.2 cm spiculated lung lesion superior segment left lower lobe not appreciably changed in size from previous exam the remaining suspicious for bronchogenic malignancy. Previously noted small stellate shaped nodular opacity right upper lobe has almost completely resolved. There are stable calcifications in the right lower lobe from prior granulomatous disease. Pleural spaces: Unremarkable. No pneumothorax. No pleural effusion. Heart: Unremarkable. No cardiomegaly. No pericardial effusion. Mild coronary artery calcifications. Mediastinal space: Chronic granulomatous calcifications within the mediastinum and right hilum unchanged. Lymph nodes: No significant mediastinal, hilar or axillary lymphadenopathy. Vasculature: Unremarkable. No aortic aneurysm. Bones/joints: Unremarkable. No acute fracture. Soft tissues: Unremarkable. IMPRESSION: COPD with 2.0 x 1.2 cm spiculated lung mass left lower lobe not appreciably changed in size from prior study but remaining suspicious for bronchogenic malignancy. CT PET scan or continued periodic surveillance recommended..
[2023-12-22] MEDS: SODIUM CHLORIDE 0.9% 10ML SYR (RAD ONLY) 10 ML IV (13:57)
[2023-12-22] MEDS: IOPAMIDOL-370 (76%);100ML BOTTLE 75 ML IV (13:57)
== END 2023-12-22 23:59 | disposition home or self-care (01) ==
LOC: RAD 13:31
PROVIDERS: PCP Nurse Practitioner Family; Visit Provider Nurse Practitioner Family
DX: R91.1 Solitary pulmonary nodule (principal); R91.8 Other nonspecific abnormal finding of lung field
CPT/HCPCS: 71260; Q9967

== ENCOUNTER 2024-01-08 16:00 | Outpatient (RCR) | payer OTHER, SELFPAY ==
--- NOTE | 2023-11-03 11:59 | HMH.PTOPEV ---
PT Outpatient Evaluation Rehab PT Outpatient Evaluation Start: 11/03/23 10:02 Freq: Status: Active Protocol: Document 11/03/23 10:04 YOAN (Rec: 11/03/23 11:59 YOAN [id number]) E-signed By Sonja Ngo, PT Outpatient Therapy Subjective History Subjective History Pt is a 63 y/o female who reports chronic neck pain and headaches since February of 2023. Pt reports onset of pain after being diagnosed with Covid-19. Pt reports chronic right-sided headaches that start in the occipital region and refer to her forehead, right eye and right ear. Pt reports she experiences headaches 2-3x/week with moderate-severe intensity. Pt states when intensity is severe she experiences light & noise sensitivity & nausea. Pt denies vomiting, fevers, or night sweats. Pt also reports constant pain in the right anterior shoulder aggravated by pulling, lifting, turning her head towards the right side and looking up. Pt reports when she looks up she gets nauseous and feels dizzy, she does report frequent fluid on her ears and ear infections. Pt reports involuntary movements of the R arm and neck when she moves her head. Pt reports crepitus and painful pops of the right neck with active movements as well. Pt also reports intermittent numbness/tingling of bilateral 4th & 5th digits . Per neurologist note, has had brain MRI, routine labs and parking enforcement officer evaluation with noncontributory results. Pt had a cervical spine MRI on 09/26/23 with impresssion of Mild degenerative change at the C5-6 and C6-7 levels as described above. 7 mm fluid signal focus left lobe of the thyroid gland, likely a colloid cyst. Thyroid ultrasound would be helpful for further evaluation as clinically indicated. Pt states she had a thyroid ultrasound on 10/07/23 with impression of Multiple thyroid nodules are present, but secondary to size and appearance no follow-up is required at this time. Pt states she was encouraged to follow-up with them if she has difficulty swallowing. Pt denies difficulty swallowing but does report intermittent tingling of the right lower face and tongue/lips. Pt reports she does take Gabapetin to help with sleeping. Pt reports she has a home traction machine she received a week ago that she uses at night which she states helps decrease pain temporarily as well. Medical History: HLD, Hx of heart attack in 2019 Posture: forward head posture with slightly increased thoracic kyphosis; tremors noted of the neck/RUE with all neck AROM New diagnosis of cancer in past 12 No months? Chief Complaint Pain,Stiff Symptom Type Ache,Dull,Stabbing Symptoms Relieved By Rest/Positioning,Prescription Meds Symptoms Aggravated By Physical Activity,Lifting Current Functional Limitations Reaching,Lifting,Housework, Sleeping Symptom Description Constant but Variable Level of pain today (0-10) 3 Pain scale - at its best (0-10) 1 Pain scale - at its worst (0-10) 9 Cervical Eval Palpation Cervical Muscles R Cervical Paraspinal,R Suboccipital,L Suboccipital,R Upper Trapezius Cervical/Thoracic Palpation Findings Tenderness Flexibility Deficits Upper Trapezius Muscle Length (R) Moderate Tightness Levaetor Scapulae Muscle Length (R) Moderate Tightness Pectoralis Major Muscle Length (R) Mild Tightness,(L) Mild Tightness Pectoralis Minor Muscle Length (R) Mild Tightness,(L) Mild Tightness Passive Joint Mobility Cervical PIVM Dec: R C5/6 L C5/6 R C6/7 L C6/7 R C7/T1 L C7/T1 AROM Cervical Spine Extension Active Range of 25 Motion (degrees) Cervical Spine Flexion Active Range of 30 Motion (degrees) Cervical Spine Right Lateral Flexion 15 Active Range of Motion (degrees) Cervical Spine Left Lateral Flexion 25 Active Range of Motion (degrees) Cervical Spine Right Rotation Active 20 Range of Motion (degrees) Cervical Spine Left Rotation Active 30 Range of Motion (degrees) MMT Left Deltoid (C5) 4 Good Biceps Brachii Strength Grade 5 Normal Wrist Extension Strength Grade 5 Normal Triceps Brachii Strength Grade 5 Normal Wrist Flexion Strength Grade 5 Normal Extensor Pollicis Longus Strength Grade 5 Normal Finger Abduction Strength Grade 5 Normal Right Deltoid (C5) 4- Good- Biceps Brachii Strength Grade 5 Normal Wrist Extension Strength Grade 5 Normal Triceps Brachii Strength Grade 5 Normal Wrist Flexion Strength Grade 5 Normal Extensor Pollicis Longus Strength Grade 5 Normal Finger Abduction Strength Grade 5 Normal DTR Rt Biceps 3+ Lt Biceps 3+ Rt Brachioradialis 3+ Lt Brachioradialis 3+ Rt Triceps 3+ Lt Triceps 3+ Altered Sensation Bilateral Upper extremity Dermatomes C8 Comment decreased light touch L compared to R Special Test C-Spine Foraminal Compression ([place]) Negative Left,Negative Right Test C-spine Verterbral Accessory Movements Central P/A [place],Right P/A that Elicit Symptoms [place] C-Spine Compression Test Negative Left,Negative Right Shoulder/Elbow Eval Shoulder Objective Measurements Shoulder MMT Bilateral Lower Trapezius Strength Grade 4- Good- Middle Trapezius Strength Grade 4- Good- Rhomboids Strength Grade 4- Good- Upper Trapezius/Levator Scapulae 4 Good Elbow Objective Measurements Neck Disability Index Neck Disability Index Section 1: Pain Intensity The pain is moderate at the moment Section 2: Personal Care (washing, I can look after myself dressing, etc.) normally but it causes extra pain Section 3: Lifting I can lift heavy weights but it gives extra pain Section 4: Reading I can read as much as I want with moderate pain in my neck Section 5: Headaches I have moderate headaches, which come infrequently Section 6: Concentration I can concentrate fully when I want to with slight difficulty Section 7: Work I can do most of my usual work , but no more Section 8: Driving I can drive my car as long as I want with moderate pain in my neck Section 9: Sleeping My sleep is slightly disturbed (less than 1 hr sleepless) Section 10: Recreation I am able to engage in most, but not all of my usual recreation NDI Score 16 Outpatient Therapy Assessment Impairments Problems/Impairmments Palpation Tenderness,Impaired Range of Motion,Impaired Strength,Impaired Lifting, Impaired Household Care, Impaired Work Activities, Subjective C/O Pain,Impaired Self Care/Self Management Prognosis Rehab Potential Good Clinical Impression Consistent with Diagnosis Yes Short Term Goals Number of Weeks 3 Increase Range of Motion Yes: Improve cervical AROM by 5-10 degrees ea plane Decrease Subjective C/O Pain Yes: Improve pain at worst to 7/10 to improve overall QOL Improve Self Care/Self Management Yes Patient to be Ind w/ HEP Yes Halfway Goals Number of Weeks 6 Increase Range of Motion Yes: Improve cervical AROM to WFL Increase Strength Yes: Improve UE/scp strength to 4-4+/5 grossly to assist with posture Improve Neck Disability Index Score Yes: Improve score to 11 or less to improve overall QOL Decrease Subjective C/O Pain Yes: Improve pain at worst to 5/10 to improve overall QOL Outpatient Therapy Plan of Care Treatment Plan May Include Therapeutic Exercise Including Home Yes Exercise Program Manual Therapy Techniques Yes Neuromuscular Re-education Yes Therapeutic Activities to Return to Yes Previous Functional/Work Level ADL/Self Care Education Yes Mechanical Traction Yes Dry Needling Yes Thermal Modalities Yes Electrical Stimulation Yes Ultrasound/Phonophoresis Yes Iontophoresis Yes Massage Yes Eval/Re-Eval Yes Frequency Times per week 2 Duration Number of Weeks 4-6 Addendums This patient is a candidate for social No or vocational rehab? Patient/Guardian verbally acknowledges Yes understanding of treatment program and consents to further treatment? Patient/Guardian verbally acknowledges Yes understanding of diagnosis, prognosis and goals for treatment? Eval Complexity PT Charges 03759 - Low Complexity PHYSICIAN CERTIFICATION: I certify the specified therapy services for Anisha Geiger are required, authorized, and reviewed every 30 days.
--- NOTE | 2023-12-09 13:00 | HMH.RHREAS ---
Rehab Reassessment Rehab OP Re-assessment Start: 11/03/23 10:02 Freq: Status: Active Protocol: Document 12/09/23 11:00 SKYEDELFIN (Rec: 12/09/23 12:59 YOAN [id number]) E-signed By Sonja Ngo PT Neck Disability Index Neck Disability Index Section 1: Pain Intensity The pain is moderate at the moment Section 2: Personal Care (washing, I can look after myself dressing, etc.) normally but it causes extra pain Section 3: Lifting I can lift heavy weights but it gives extra pain Section 4: Reading I can read as much as I want with moderate pain in my neck Section 5: Headaches I have moderate headaches, which come infrequently Section 6: Concentration I can concentrate fully when I want to with slight difficulty Section 7: Work I can only do my usual work, but no more Section 8: Driving I can drive my car as long as I want with moderate pain in my neck Section 9: Sleeping My sleep is slightly disturbed (less than 1 hr sleepless) Section 10: Recreation I am able to engage in most, but not all of my usual recreation NDI Score 15 Rehab Re-assessment Subjective Subjective Pt reports she has not attended PT in 19 days due to being busy with family. Pt reports within the last weeks her cousin , her grandson got and her youngest son came in from [place]. Pt reports she feels 20% improved since starting PT , states I have good and bad days. Pt reports intermittent headaches and right-sided neck pain although less severe or frequent since starting PT . Pt also reports right ear pain that occurs with neck pain. Pt reports headaches are mostly bilateral that run from the back of the head to the forehead region. Pt also reports sometimes headaches seem to start from behind the right eye and her eye will itch and water. Pt also continues to report intermittent involuntary movement of the right arm and neck that varies. Pt reports pain at worst as 6/10 and at best 2/10 on VAS. Pt reports pain seems to be aggravated by looking over her shoulder, pulling and lifting. Pt reports she returns to Dr. Starr on January 26 for her next follow-up visit. Objective Objective Notes Palpation: referred pain into occiput and right eye with palpation of suboccipital mm and the upper-mid cervical spine Cervical AROM: flex 27, ext 12 , LLF 20, RLF 28, Rrot 15, rot 20 (tremors noted with all planes with exception of cervical extension) RUE MMT: shoulder flexion 4-/5 (tremors), shoulder abduction 4-/5, elbow flex 5/5, elbow ext 5/5 Assessment Progress Assessment Slower Than Expected Assessment Notes Pt has only attended 5 PT visits since her initial evaluation on 11/03/23. Pt reports she is only able to attend PT 1x/week due to financial reasons and was unable to come for 19 days due to family reasons. Pt demonstrated only 1 point improvement in NDI score and 1 point improvement with subjective report of pain/ headaches. Pt demonstrated regression in cervical AROM with right-sided tremors noted with end ranges during all planes except cervical extension. Pt educated on importance of compliance with HEP and attendance of PT treatment in clinic to assist with overall progress. Due to limited progress, regression in ROM and continued tremors will continue PT treatment as well as refer pt back to MD for further evaluation and treatment options. Overall, the pt would benefit from skilled PT to further improve subjective report of pain, cervical ROM, strength and functional activity tolerance to assist with return to PLOF. Patient goals met ST/4 Goals Not Met cervical ROM, HEP compliance, LTG Revised Goals n/a Plan Plan Continue initial POC and refer back to MD for further evaluation and treatment options. Frequency of Therapy 2x/week Duration of therapy 4 more weeks Time and Billing Re-Eval Time 19 Re-Eval Billing Units 1 PHYSICIAN CERTIFICATION: I certify the specified therapy services for Anisha Geiger are required, authorized, and reviewed every 30 days.
--- NOTE | 2024-01-08 18:16 | HMH.RHREAS ---
Rehab Reassessment Rehab OP Re-assessment Start: 11/03/23 10:02 Freq: Status: Active Protocol: Document 01/08/24 16:03 YOAN (Rec: 01/08/24 18:16 YOAN [id number]) E-signed By Sonja Ngo PT Neck Disability Index Neck Disability Index Section 1: Pain Intensity The pain is moderate at the moment Section 2: Personal Care (washing, I can look after myself dressing, etc.) normally without causing extra pain Section 3: Lifting I can lift heavy weights without extra pain Section 4: Reading I can read as much as I want with moderate pain in my neck Section 5: Headaches I have moderate headaches, which come infrequently Section 6: Concentration I have a fair degree of difficulty in concentrating when I want to Section 7: Work I can do most of my usual work , but no more Section 8: Driving I can't drive my car as long as I want because of moderate pain in my Section 9: Sleeping My sleep is midly disturbed (1 -2 hrs sleepless) Section 10: Recreation I am able to engage in a few of my usual recreation activities because NDI Score 18 Rehab Re-assessment Subjective Subjective Pt reports no change in right- sided neck pain or headaches overall. Pt reports this morning her R arm started shaking at rest although she states this usually only occurs with activity involving movement of the right arm or neck. Pt rates right-sided neck pain as 6/10 at worst on VAS. Pt reports pain is aggravated by cervical ROM and lifting. Pt reports continued intermittent headaches as well. Pt reports compliance of HEP. Pt reports she is supposed to return to work on Friday. Pt reports she tried to get an earlier appointment with her neurologist however they were booked so she returns on January 26 for her next follow-up. Objective Objective Notes Palpation: 2/4 TTP of R upper trapezius, suboccipital mm, and upper-mid cervical spine with report of referred pain into her occiput and right eye Cervical AROM: flex 30, ext 32 , LLF 25, RLF 20, Rrot 20, Lrot 30 (tremors noted with all planes worse with R lateral flexion this date) RUE MMT: shoulder flexion 4/5 (tremors), shoulder abduction 4/5, elbow flex 5/5, elbow ext 5/5 Assessment Progress Assessment Slower Than Expected Assessment Notes Pt has attended 11 total PT treatment sessions consisting of aerobic exercise, postural re-education, cervical mobility/stretching/ strengthening, manual therapy, modalities and HEP. Pt reported increased pain with all attempted manual therapy although tolerated exercises well. Pt demonstrated slight regression in NDI outcome measure, no change in pain at worst and only minimal improvement in cervical ROM compared to her previous reassessment. Pt continues to report moderate neck pain and headaches and present with cervical ROM deficits and involuntary movements of the RUE and neck. Due to lack of significant improvement with conservative care and continued pain, the pt is most appropriate to discharge to independent HEP and refer back to MD for further evaluation and treatment options at this time. Patient goals met ST/4 Goals Not Met cervical ROM, LTG Revised Goals n/a Plan Plan Discharge pt due to lack of significant improvement with conservative care. Refer back to MD for further evaluation and treatment options. Time and Billing Re-Eval Time 17 Re-Eval Billing Units 1 Charge for PT reassessment? Yes Charge for OT reassessment? No PHYSICIAN CERTIFICATION: I certify the specified therapy services for Anisha Geiger are required, authorized, and reviewed every 30 days.
== END 2024-01-08 23:59 | disposition home or self-care (01) ==
LOC: PT 16:00
PROVIDERS: Visit Provider Specialist
DX: M47.22 Other spondylosis with radiculopathy, cervical region (principal); G44.86 Cervicogenic headache
CPT/HCPCS: 97014; 97110; 97140; 97163; 97164; G0283

== ENCOUNTER 2024-01-15 13:34 | Outpatient (CLI) | payer OTHER, SELFPAY ==
[2024-01-15 13:16] LABS: Adenovirus,PCR Not Detected (NotDetected); Bordetella Pertussis Not Detected (NotDetected); Chlamydophila Pneumoniae, PCR Not Detected (NotDetected); Coronavirus 19, PCR Not Detected (NotDetected); Coronavirus 229E Not Detected (NotDetected); Coronavirus NL63 Not Detected (NotDetected); Coronavirus OC43 Not Detected (NotDetected); Coronovirus HKU1,PCR Not Detected (NotDetected); Human Metapneumovirus Not Detected (NotDetected); Influenza A, PCR Not Detected (NotDetected); Influenza AH1, 2009 Not Detected (NotDetected); Influenza AH1, PCR Not Detected (NotDetected); Influenza AH3,PCR Not Detected (NotDetected); Influenza B, PCR Not Detected (NotDetected); Mycoplasma Pneumoniae, PCR Not Detected (NotDetected); Parainfluenza 1, PCR Not Detected (NotDetected); Parainfluenza 2, PCR Not Detected (NotDetected); Parainfluenza 3, PCR Not Detected (NotDetected); Parainfluenza 4, PCR Not Detected (NotDetected); Respiratory Syncytial Virus Not Detected (NotDetected); Rhinovirus/Enterovirus Not Detected (NotDetected)
== END 2024-01-15 23:59 | disposition home or self-care (01) ==
LOC: LAB.DROPOF 13:34
PROVIDERS: PCP Nurse Practitioner Family; Visit Provider Nurse Practitioner Family
DX: H92.01 Otalgia, right ear (principal); H66.91 Otitis media, unspecified, right ear; J02.9 Acute pharyngitis, unspecified; R05.9 Cough, unspecified; Z72.0 Tobacco use
CPT/HCPCS: 87070; 87633

== ENCOUNTER 2024-03-16 13:31 | Outpatient (CLI) | payer OTHER, SELFPAY | END 2024-03-16 23:59 | disposition home or self-care (01) | LOC: LAB.DROPOF 13:32 | PROVIDERS: PCP Nurse Practitioner Family; Visit Provider Nurse Practitioner Family | DX: R09.81 Nasal congestion (principal); R51.9 Headache, unspecified | CPT/HCPCS: 87635 ==

== ENCOUNTER 2024-03-31 12:51 | Outpatient (CLI) | payer OTHER, SELFPAY ==
--- NOTE | 2024-03-31 12:52 | CT_ITS ---
FINAL REPORT TECHNIQUE: Routine axial images were obtained from the lung apices to below the diaphragm following IV contrast administration. Individualized dose reduction techniques using automated exposure control or adjustment of the mA and/or kV according to the patient size were employed. CLINICAL HISTORY: Lung nodule and lymphadenopathy COMPARISON: 07/22/2023 FINDINGS: CT CHEST WITH CONTRAST: No mediastinal or hilar mass or adenopathy is identified. There are moderate changes of centrilobular emphysema present. The prior exam from 07/22/2023 demonstrated a spiculated right upper lobe nodule, which is no longer seen on this examination. However, there is a spiculated mass in the superior left lower lobe, 2 x 1.3 cm in size, noncalcified, similar to that seen on the prior exam. No new nodules or infiltrates are identified. No pericardial or pleural effusions are present. IMPRESSION: Spiculated mass in the superior left lower lobe, similar to that seen on the prior exam of 07/22/2023. The appearance of this mass is worrisome for neoplasm, and if a PET scan has not been obtained would strongly suggest for further evaluation. The spiculated mass in the right upper lobe, 5 mm in size, is not well-seen on today's examination. Changes of centrilobular emphysema are present, without significant adenopathy. Reviewed, Interpreted and Dictated by Jesus Duke MD Transcribed by Norma Tapia Authenticated and [facility]
[2024-03-31 13:13] LABS: Blood Urea Nitrogen 16 mg/dl (7-17); Estimated Glomerular Filt Rate 85 ml/min (>60); GFR (African American) 102 ML/MIN (>60)
[2024-03-31] MEDS: IOPAMIDOL-370 (76%);100ML BOTTLE 75 ML IV (14:01)
[2024-03-31] MEDS: SODIUM CHLORIDE 0.9% 10ML SYR (RAD ONLY) 10 ML IV (14:01)
[2024-03-31] MEDS: ALBUTEROL 0.083% 2.5 MG/3 ML NEB IH (15:05)
== END 2024-03-31 23:59 | disposition home or self-care (01) ==
LOC: RAD 12:52
PROVIDERS: PCP Nurse Practitioner Family; Visit Provider Internal Medicine Pulmonary Disease
DX: R59.0 Localized enlarged lymph nodes (principal); R91.1 Solitary pulmonary nodule; R06.09 Other forms of dyspnea
CPT/HCPCS: 71260; 82565; 84520; 94060; 94618; 94726; 94729; J7613; Q9967

== ENCOUNTER 2024-05-20 09:20 | Outpatient (CLI) | payer OTHER, SELFPAY ==
--- NOTE | 2024-05-20 09:31 | XR_ITS ---
FINAL REPORT CLINICAL HISTORY: left knee pain nki FINDINGS: AP, oblique, and lateral views of the left knee were obtained. There is no acute fracture or dislocation. Degenerative joint disease is most pronounced in the medial compartment. There is no joint effusion or other acute soft tissue abnormality. IMPRESSION: No acute osseous abnormality of the left knee. Reviewed, Interpreted and Dictated by Vesta Obregon MD Transcribed by Patricia Abreu Authenticated and [facility]
[2024-05-20 09:52] LABS: Basophils # 0.1 K/mm3 (0-0.2); Basophils % 0.9 % (0.1-2.0); Eosinophils # 0.1 K/mm3 (0.0-0.4); Eosinophils % 1.3 % (0.1-12.0); Hematocrit 45.1 % (37.0-47.0); Hemoglobin 15.4 g/dL (12.2-16.2); Lymphocytes # 2.2 K/mm3 (0.7-4.5); Lymphocytes % 28.2 % (10-50); Mean Corpuscular HGB Conc 34.1 g/dL (31.8-35.4); Mean Corpuscular Hemoglobin 31.4 pg (27.0-31.2); Mean Platelet Volume 11.1 fl (7.4-10.4); Monocytes # 0.4 K/mm3 (0.1-1.0); Monocytes % 5.6 % (1.7-9.3); Neutrophils # 4.9 K/mm3 (1.8-7.8); Neutrophils % 63.9 % (37.0-80.0); Platelet Count 182 K/mm3 (142-424); Red Cell Distribution Width 13.4 % (11.5-17.5); White Blood Count 7.7 K/mm3 (4.8-10.8)
[2024-05-20 10:10] LABS: Albumin Level 4.4 g/dl (3.5-5.0); Chloride 108 mmol/L (98-107); Potassium 4.7 mmoL/L (3.5-5.1); Sodium 139 mmol/L (136-145)
[2024-05-20 10:12] LABS: Alanine Aminotransferase 17 U/L (12-78); Aspartate Amino Transferase 33 U/L (14-36); Blood Urea Nitrogen 15 mg/dl (7-17); Estimated Glomerular Filt Rate 101 ml/min (>60); GFR (African American) 122 ML/MIN (>60)
[2024-05-20 10:13] LABS: Albumin/Globulin Ratio 1.8 (1.1-1.8); Alkaline Phosphatase 87 U/L (38-126); Anion Gap 7.7 mEq/L (5-15); Bilirubin,Total 0.9 mg/dl (0.2-1.3); Calcium 9.4 mg/dl (8.4-10.2); Carbon Dioxide 28 mmol/L (22.0-30.0); Chol/HDL Ratio 1.8 (1-3.5); Cholesterol 118 mg/dl (140-200); Globulin 2.5 g/dL (1.3-3.2); Glucose 93 mg/dl (74-100); HDL Cholesterol 64 mg/dl (40-60); Iron 120 ug/dL (37-170); Total Protein,Serum 6.9 g/dl (6.3-8.2); Triglycerides 74 mg/dl (30-150); VLDL Cholesterol 15 mg/dL (0-40)
[2024-05-20 10:23] LABS: Total Iron Binding Capacity 324 ug/dL (265-497)
[2024-05-20 10:24] LABS: Direct LDL Cholesterol 38.91 mg/dL (100-129)
[2024-05-20 10:30] LABS: Free T4 (Free Thyroxine) 0.88 ng/dl (0.78-2.19)
[2024-05-20 10:44] LABS: Thyroid Stimulating Hormone 0.91 uIU/mL (0.465-4.68)
[2024-05-20 10:48] LABS: Ferritin 71.5 ng/ml (11.1-264)
[2024-05-20 10:55] LABS: HIV Combo NEGATIVE (Negative)
[2024-05-20 11:04] LABS: Hepatitis C Ab Qual. W/ RFX NEGATIVE (Negative)
[2024-05-20 11:58] LABS: Vitamin B12 860 pg/mL (239-931)
[2024-05-20 12:06] LABS: Hemoglobin A1C 5.5 % (4.0-6.0)
== END 2024-05-20 23:59 | disposition home or self-care (01) ==
LOC: LAB 09:21
PROVIDERS: PCP Nurse Practitioner Family; Visit Provider Nurse Practitioner Family
DX: E78.5 Hyperlipidemia, unspecified (principal); E11.9 Type 2 diabetes mellitus without complications; Z11.4 Encounter for screening for human immunodeficiency virus [HIV]; Z11.59 Encounter for screening for other viral diseases; M25.562 Pain in left knee; E04.1 Nontoxic single thyroid nodule; M47.22 Other spondylosis with radiculopathy, cervical region; I10 Essential (primary) hypertension; G51.9 Disorder of facial nerve, unspecified; R53.83 Other fatigue; R41.3 Other amnesia; G47.33 Obstructive sleep apnea (adult) (pediatric)
CPT/HCPCS: 36415; 73562; 80053; 80061; 82306; 82607; 82728; 83036; 83540; 83550; 84439; 84443; 85025; 86803; 87389

== ENCOUNTER 2024-05-24 11:04 | Outpatient (POV) | payer OTHER, SELFPAY ==
[2024-05-24 11:25] VITALS: BP 121/80; PULSE 66; RESP 18; O2SAT 95; BMI 25.8
--- NOTE | 2024-05-24 12:23 | A.OFFVIS_ITS ---
HPI Data of Consult Patient: new to practice Consult date: 05/24/24 Requesting Physician: Sonja Bhatti APRN Primary Care Provider: Allison Tony APRN Consult Narrative Reason for consult: Neck pain, bilateral shoulder pain, bilateral arm/finger numbness History of present illness: Ms. Geiger is a 64 year old female who presents today as a new patient. She is a referral from Dr. Starr's office. Today she rates her pain a 2 out of 10. Patient states that she has been experiencing neck pain that does radiate across her shoulders and down into her arms with numbness and tingling into her ring and pinky fingers bilaterally since last year after having COVID in February. She does state that initially when it started she was having right sided facial numbness including her tongue face and ear. Patient did have imaging and does believe that they were trying to rule out possible stroke. Patient states that she has also had muscle spasms and twitching since as well. Patient denies any specific injury or trauma that initially started the symptoms. She states it is just a constant sensation with numbness and tingling. She states it does interfere with her ability perform activities of daily living. Patient states that she has not had any updated imaging since last year. Patient states that she has tried oral medications such as gabapentin however it caused significant drowsiness that she could not tolerate. Patient has also tried Tylenol, heat and ice and topicals with minimal relief. Patient has done physical therapy with no additional changes. She has tried the chiropractor in the past. Patient denies any previous injection or surgical history in her back. Her [place] has been reviewed and is appropriate. CC: Sonja Bhatti APRN [facility] Disclaimer: The information contained in this section may have been updated after the patient was seen, as this information can be updated by other users. Medical History (Updated 05/24/24 @ 12:27 by Sonja Bhatti APRN) Bilateral otitis media Viral respiratory illness Flu-like symptoms Right otitis media Hilar lymphadenopathy Dyspnea on exertion Smoking greater than 30 pack years Pulmonary emphysema Lung nodule Insect bite of left arm Folliculitis Oral thrush Family history of uterine cancer Family history of breast cancer Elevated troponin Chest pain Arthritis History of heart attack History of migraine HLD (hyperlipidemia) History of CAD (coronary artery disease) Surgical History History of heart artery stent History of eye surgery Hx of cholecystectomy Hx of tubal ligation Hx of total knee replacement Family History Other Cancer Coronary artery disease Family history of COPD (chronic obstructive pulmonary disease) Family history of cancer Family history of heart disease Heart attack Hyperlipidemia Hypertension Social History (Updated 05/24/24 @ 11:26 by Abbey Pardo RN) Smoking Status: Current every day smoker alcohol intake: never substance use type: denies use current occupational status: employed Travel in the last 8 weeks: None household members: spouse housing: house marital status: Review of Systems Review of Systems Review of systems:: pertinent systems reviewed and negative unless documented below Review of systems (narrative): Review of Systems: General: No recent weight changes, no fever, no sleep disturbances Respiratory: No cough, no shortness of air, no recurring pulmonary infections Cardiovascular/peripheral vascular: No chest pain, no palpitations, no edema, no shortness of breath Gastrointestinal: No new onset incontinence, normal bowel movements reported Genitourinary: No new onset incontinence Musculoskeletal: Neck pain, bilateral shoulder pain, numbness tingling bilateral hands/fingers Psychiatric: [Normal mood/affect] Neurological: [Denies weakness in extremities], [denies balance issues] Meds Home Medications and Allergies Home Medications ?Medication ?Instructions ?Recorded ?Confirmed ?Type nitroglycerin 0.4 mg sublingual 0.4 mg sublingual [id number] PRN 04/10/19 05/24/24 History tablet Chest Pain rosuvastatin 40 mg tablet 40 mg PO DAILY 05/01/23 05/24/24 History gabapentin 100 mg capsule 100 - 200 mg PO DAILY PRN 07/17/23 05/24/24 History Neuropathic pain krill pai-oskci-0-dha-epa 45 mg-45 1 cap PO DAILY 07/17/23 05/24/24 History mg capsule meppqkdngzxj-Fi-uzkg-minerals 1 tab PO DAILY 07/17/23 05/24/24 History acetaminophen 325 mg capsule 325 mg PO QID PRN Pain 09/08/23 05/24/24 History (Tylenol) apple cider vinegar 300 mg tablet 300 mg PO DAILY PRN SUPPLIMENT 09/08/23 05/24/24 History cetirizine 10 mg tablet (Zyrtec) 10 mg PO DAILY 09/08/23 05/24/24 History nicotine (polacrilex) 2 mg gum 2 mg buccal Q2H PRN nicotine 12/30/23 05/24/24 Rx cravings #100 ea fluticasone propionate 50 1 spray intranasal DAILY #10 mL 03/08/24 05/24/24 Rx mcg/actuation nasal spray,suspension (Flonase Allergy Relief) ondansetron 4 mg disintegrating 4 mg PO Q8H PRN nausea and 03/08/24 05/24/24 Rx tablet vomiting #30 tabs albuterol sulfate 90 mcg/actuation 2 inh inhalation QID PRN shortness 04/02/24 05/24/24 Rx aerosol inhaler of breath or wheezing 90 days #8.5 grams umeclidinium 62.5 mcg-vilanterol 1 inh inhalation DAILY 90 days 04/02/24 05/24/24 Rx 25 mcg/actuation powdr for #180 ea inhalation (Anoro Ellipta) umeclidinium 62.5 mcg-vilanterol 1 inh inhalation DAILY 90 days 04/02/24 05/24/24 Rx 25 mcg/actuation powdr for #180 ea inhalation (Anoro Ellipta) neomycin 3.5 mg/g-polymyxin B 1 applic Eye-Both HS 05/20/24 05/24/24 History 10,000 unit/g-dexameth 0.1 % eye oint rivaroxaban 2.5 mg tablet (Xarelto) 2.5 mg PO DAILY 05/20/24 05/24/24 History New Prescriptions to Start Prescriptions: Allergies Allergy/AdvReac Type Severity Reaction Status Date / Time propoxyphene (From DARVON) Allergy Intermediate I-RASH Verified 05/20/24 08:33 cefaclor (From CECLOR) Allergy Mild I-RASH Verified 05/20/24 08:33 Objective Vital signs: Pulse Resp BP Pulse Ox O2 Del Method 66 18 121/80 95 Room Air 05/24/24 11:25 05/24/24 11:25 05/24/24 11:25 05/24/24 11:25 05/24/24 11:25 Narrative: Physical Exam: General: Alert and oriented x3, no acute distress, pleasant and cooperative Lungs: Respirations even and unlabored, symmetrical chest expansion Eyes: PERRL Musculoskeletal: Flexion and extension of cervical [spine] somewhat guarded secondary to pain, [antalgic gait noted] positive Spurling's test Neurological: Speech clear, no gross sensory deficit Additional findings Additional findings: FINDINGS: Multi planar MR imaging was obtained of the cervical spine. There is abnormal decreased signal throughout the cervical discs. The vertebrae are of normal height. There is no malalignment. The cervical cord demonstrates normal signal and configuration. C2-C3: There is no evidence of significant disc bulge or protrusion. There is no significant facet hypertrophy. C3-C4: There is no evidence of significant disc bulge or protrusion. There is no significant facet hypertrophy. C4-C5: There is no evidence of significant disc bulge or protrusion. There is no significant facet hypertrophy. C5-C6: A mild annular bulge is present with mild central canal stenosis. C6-C7: A mild annular bulge is present with mild bilateral neural foraminal narrowing. C7-T1: There is no evidence of significant disc bulge or protrusion. There is no significant facet hypertrophy. Also noted is a 7 mm fluid signal focus in the left lobe of the thyroid gland, likely a colloid cyst. Thyroid ultrasound would confirm if clinically indicated. IMPRESSION: Mild degenerative change at the C5-6 and C6-7 levels as described above. 7 mm fluid signal focus left lobe of the thyroid gland, likely a colloid cyst. Thyroid ultrasound would be helpful for further evaluation as clinically indicated. Reviewed, Interpreted and Dictated by Jesus Duke MD Transcribed by Norma Tapia Authenticated and Electronically Signed by Jesus Duke MD Assessment and Plan *Assessment and plan (1) Degenerative disc disease, cervical: Status: Acute Category: Medical Code(s): M50.30 - Other cervical disc degeneration, unspecified cervical region (2) Cervical radiculopathy: Status: Acute Category: Medical Code(s): M54.12 - Radiculopathy, cervical region (3) Facial neuropathy: Problem Comment: Established with Dr. Starr Status: Acute Category: Medical Code(s): G51.9 - Disorder of facial nerve, unspecified Plan Patient is experiencing worsening pain in their neck with radiating tingling and burning sensations into their bilateral upper extremities. Patient did have limited range of motion of her cervical spine with a positive Spurling's test. I did discuss with the patient that I do believe they would benefit from a cer vical epidural steroid injection. Risk and benefits were discussed with patient however she would like to wait. I will order the patient a compounded cream and also send in a muscle relaxer of methocarbamol 500 mg 3 times daily as needed. Patient was counseled that the muscle relaxers are as needed and that she can cut these in half if they are too strong at that current dosage. Patient was al so discussed in future that she may benefit from an EMG test due to the continued muscle spasms and twitching. We will follow-up on this in future. Patient will return to clinic in 2 weeks.
== END 2024-05-24 23:59 | disposition home or self-care (01) ==
PROVIDERS: PCP Nurse Practitioner Family; Visit Provider Nurse Practitioner Family
DX: M50.10 Cervical disc disorder with radiculopathy, unspecified cervical region (principal); G51.9 Disorder of facial nerve, unspecified; F17.210 Nicotine dependence, cigarettes, uncomplicated; Z73.89 Other problems related to life management difficulty; Z96.659 Presence of unspecified artificial knee joint; Z79.01 Long term (current) use of anticoagulants
CPT/HCPCS: 99202; G0463

== ENCOUNTER 2024-07-28 16:34 | Outpatient (CLI) | payer OTHER, SELFPAY ==
[2024-07-28 12:39] LABS: Coronavirus 19, PCR Not Detected (NotDetected); Human Rhinovirus Not Detected (NotDetected); Influenza A, PCR Not Detected (NotDetected); Influenza B, PCR Not Detected (NotDetected); Respiratory Syncytial Virus Not Detected (NotDetected)
[2024-07-29 12:12] LABS: Anti-Centromere B Antibodies <0.2 AI (0.0-0.9); Anti-DNA (DS) Ab Qn <1 IU/mL (0-9); Anti-Jo-1 <0.2 AI (0.0-0.9); Anti-Smith Antibody <0.2 AI (0.0-0.9); Antichromatin Antibodies <0.2 AI (0.0-0.9); Antiscleroderma-70 Antibodies <0.2 AI (0.0-0.9); RNP Antibodies <0.2 AI (0.0-0.9); Sjogren's Anti-SS-A 0.2 AI (0.0-0.9); Sjogren's Anti-SS-B <0.2 AI (0.0-0.9)
== END 2024-07-28 23:59 | disposition home or self-care (01) ==
LOC: LAB.DROPOF 16:34
PROVIDERS: PCP Nurse Practitioner Family; Visit Provider Nurse Practitioner Family
DX: J02.9 Acute pharyngitis, unspecified (principal); M25.50 Pain in unspecified joint
CPT/HCPCS: 36415; 86225; 86235; 87070; 87631

== ENCOUNTER 2024-10-04 12:47 | Outpatient (CLI) | payer OTHER, SELFPAY ==
--- OUTSIDE RECORDS SUMMARY | 2024-08-06 13:00 | XMS_ITS | Encounter Summary ---
Author Organization [facility] Address [address] [place] [address] Care Team Providers Care Meatcutter Name Role Phone Chavo Allison Viry WALTON Primary Care Provider [phone] Reason for Visit * Reason Comments Strabismus Encounter Details Date Type Department Care Team (Latest Contact Info) Description 08/06/2024 1:00 PM EDT Office Visit [facility] [place] [address], [address] [place] [address] Derek Chopra MD [address] [place] [address] Exotropia, alternating (Primary Dx) Social History Tobacco Use Types Packs/Day Years Used Date Smoking Tobacco: Every Day Cigarettes 1 49.6 Started: 02/24/1975 Passive Smoke Exposure: Current Smokeless Tobacco: Never Tobacco Cessation:Ready to Q uit: Not Asked; Counseling Given: Not Answered Alcohol Use Standard Drinks/Week Comments Not Currently 0 (1 standard drink = 0.6 oz pur e alcohol) Comments No Sex and Gender Information Value Date Recorded Sex Assigned at Not on file Legal Sex Female 6:30 PM EDT Gender Identity Not on file Sexual Orientation Not on file documented as of this encounter Miscellaneous Notes * Progress Notes - Derek Chopra MD - 08/06/2024 1:00 PM EDT Images from the original note were not included. Subjective Patient ID: Anisha Geiger is a 64 y.o. female. She is here for a follow-up exam. The chief complaint today was Strabismus . Her problem list, including any diagnoses added today: Problem List[1] Chief Complaint Strabismus HPI 64 year old presents to clinic for 3 month follow up, Strabismus exam. Pt states she's using her new contact lens (CL) Rx, has not been wearing them often due to allergies, and light sensitivity causing watery eyes, Pt has been wearing older Rx glasses from a year ago instead. Pt states post-op herright eye (OD) has not been as light sensitive. Pt states vision has gotten better post-op. Pt denies any further questions or concerns about her vision today. Last edited by Mode Fournier on 08/06/2024 12:54 PM. ROS Positive for: Eyes Negative for: Constitutional, Gastrointestinal, Neurological, Skin, Genitourinary, Musculoskeletal,HENT, Endocrine, Cardiovascular, Respiratory, Psychiatric, Allergic/Imm, Heme/Lymph Last edited by Mode Fournier on 08/06/2024 12:41 PM. No current outpatient medications on file. (Ophthalmic Drugs) No current facility-administered medications for this visit. (Ophthalmic Drugs) Current Outpatient Medications (Other) Medication Sig ascorbic acid (Vitamin C) 500 MG tablet Take 1 tablet (500 mg) by mouth 1 (one) time each day. Lhwuluz-Bsjxaugmbw-Fmnzsjf (VICKS VAPORUB EX) Apply topically if needed. KRILL OIL PO Take 1 tablet by mouth 1 time each day. Misc Natural Products (Beet Root) 500 MG capsule Take by mouth 1 (one) time each day. Total beets Multiple Vitamin (multivitamin) tablet Take 1 tablet by mouth daily. rosuvastatin (Crestor) 40 MG tablet Take 1 tablet (40 mg) by mouth daily. No current facility-administered medications for this visit. (Other) Allergies: Propoxyphene, Cefaclor, and Codeine Objective Base Eye Exam Visual Acuity (Snellen - Linear) Right Left Dist cc 20/25 -2 20/20 Near cc J2 OU Pupils Pupils Shape React APD Right PERRL Round Minimal Trace Left PERRL Round Minimal Trace Visual Dan (Counting fingers) Right Left Full Full Extraocular Movement Right Left Full Full Neuro/Psych Oriented x3: Yes Mood/Affect: Normal Strabismus Exam Method: Alternate cover Correction: cc Distance Near Near +3DS N Bifocals - - - - - - X(T) - - - - - - - - - - Ortho - - - - - - - - - - Ortho - - - - - - Slit Lamp and Fundus Exam External Exam Right Left External Normal Normal Slit Lamp Exam Right Left Lids/Lashes Normal, no ptosis Normal, no ptosis Conjunctiva/Sclera Normal Normal Cornea Clear Clear Anterior Chamber Deep and quiet Deep and quiet Iris Normal pupil size and shape Normal pupil size and shape Lens Clear Clear Vitreous Clear Clear Assessment/Plan Diagnoses and all orders for this visit: Exotropia, alternating Alignment improved after strabismus surgery. Should still have periodic evaluation to ensure current alignment is maintained. Follow up if symptoms worsen or fail to improve. An examination of the periorbital structures, anterior segment, and ocular motility was ordered, reviewed, and interpreted by Derek Chopra MD. All results reviewed and within normal limits except as outlined above. Patient history, provider findings, and provider assessment and plan discussed with both patient and family member(s). Family member(s) served as independent historian(s). Monitoring and / or treatment of the conditions outlined above is necessary to prevent lifelong disability. The patient has been counseled on tobacco cessation: Yes [1] Patient Active Problem List Diagnosis Acquired involutional ptosis of both eyelids History of strabismus surgery Exotropia, alternating Alternating exotropia documented in this encounter Plan of Treatment Not on file documented as of this encounter Visit Diagnoses Diagnosis Exotropia, alternating- Primary Alternating exotropia documented in this encounter Additional Health Concerns Assessment Noted Time A fall risk assessment has been complete d for the patient 08/06/2024 12:56 PM EDT A Body Mass Index follow-up plan has been documented for the patient 08/06/2024 1:41 PM EDT documented as of this encounter Care Teams Meatcutter Relationship Specialty Start Date End Date Allison Tony, ANTNO [address] [place] [address] PCP - General 10/17/23 documented as of this encounter
--- OUTSIDE RECORDS SUMMARY | 2024-10-04 12:50 | XMS_ITS | Encounter Summary ---
Author Organization [facility] Address [address] [id number] Care Team Providers Care Primary Care Md Name Role Phone Allison Tony APRN Primary Care Provider [phone] Encounter Details Date Type Department Care Team (Latest Contact Info) Description 08/06/2024 Travel Social History Tobacco Use Types Packs/Day Years Used Date Smoking Tobacco: Every Day Cigarettes 1 49.6 Started: 02/24/1975 Passive Smoke Exposure: Current Smokeless Tobacco: Never Alcohol Use Standard Drinks/Week Comments Not Currently 0 (1 standard drink = 0.6 oz pur e alcohol) Comments No Sex and Gender Information Value Date Recorded Sex Assigned at Not on file Legal Sex Female 6:30 PM EDT Gender Identity Not on file Sexual Orientation Not on file documented as of this encounter Plan of Treatment Not on file documented as of this encounter Visit Diagnoses Not on filedocumented in this encounter Additional Health Concerns Assessment Noted Time A fall risk assessment has been complete d for the patient 08/06/2024 12:56 PM EDT A Body Mass Index follow-up plan has been documented for the patient 08/06/2024 1:41 PM EDT documented as of this encounter Care Teams Primary Care Md Relationship Specialty Start Date End Date Allison Tony APRN [address] [place] [address] PCP - General 10/17/23 documented as of this encounter
--- OUTSIDE RECORDS SUMMARY | 2024-10-04 12:50 | XMS_ITS | Clinical Summary ---
Author Organization [facility] Address [address] [place] [address] Care Team Providers Care Laborer Demolition Name Role Phone TonyAllison Viry WALTON Primary Care Provider [phone] Allergies Active Allergy Reactions Criticality Noted Date Comments Cefaclor Rash Low 04/05/2019 Tolerated Augmentin prior to admission Codeine Nausea And Vomiting,Dizziness Low 01/08/2024 Propoxyphene Rash Medium 04/05/2019 Medications ascorbic acid (Vitamin C) 500 MG tablet Take 1 tablet (500 mg) by mouth 1 (one) time each day. Active rosuvastatin (Crestor) 40 MG tablet Take 1 tablet (40 mg) by mouth daily. Active Multiple Vitamin (multivitamin) tablet Take 1 tablet by mouth daily. Active Misc Natural Products (Beet Root) 500 MG capsule Take by mouth 1 (one) time each day. Total beets Active Camphor-Eucalyp tus-Menthol (VICKS VAPORUB EX) Apply topically if needed. Active KRILL OIL PO Take 1 tablet by mouth 1 time each day. 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 Encounters Date Type Department Care Team Description 08/06/2024 1:00 PM EDT Office Visit [facility] [place] [address], [address] [place] [address] Derek Chopra MD Exotropia, alternating (Primary Dx) 08/06/2024 Travel 07/30/2024 Travel from Last 3 Months Family History Medical History Relation Name Comments Anesthesia problems Neg Hx Malig Hyperthermia Neg Hx Social History Tobacco Use Types Packs/Day Years [...] on file Sexual Orientation Not on file Last Filed Vital Signs Vital Sign Reading Time Taken Comments Blood Pressure 109/64 04/07/2024 1:17 PM EST Pulse 75 04/07/2024 1:20 PM EST Temperature 36 C (96.8 F) 04/07/2024 12:12 PM EST Respiratory Rate 25 04/07/2024 1:20 PM EST Oxygen Saturation 95% 04/07/2024 1:20 PM EST Inhaled Oxygen Concentration - - Weight 66.8 kg (147 lb 4.3 oz) 04/07/2024 8:53 A M EST Height 160 cm (5' 3 ) 04/07/2024 8:53 AM EST Body Mass Index 26.09 04/07/2024 8:53 AM EST Plan of Treatment Health Maintenance Due Date Last Done Comments [facility]-Depression Screening 1960 [facility]-HIV Screening 1960 [facility]-Hepatitis C Screening 1960 [facility]-/Child/Adol SDOH Screenings 1960 [id number] Vaccine (#1) 1965 [facility]- SDOH Screenings 1978 [facility]Y-Adult SDOH Screenings 1978 [facility]Y-DTaP,Tdap,and Td Vaccines (1 - Tdap) 05/03/1979 [facility]Y-Pneumococcal Vaccine: 50+ Years (1 of 2 - PCV) 05/03/1979 [facility]-Pap Smear 1981 [facility]-Cervical Cancer Screening 1990 [facility]Y-HPV/Cotest 1990 CT Colonography 2005 Colonoscopy 2005 FIT-DNA 2005 FIT 2005 FOBT 2005 Sigmoidoscopy 2005 [facility]Y-Colorectal Cancer Screening 2005 [facility]Y-Breast Cancer Screening 2010 [facility]Y-Lung Cancer Screening 2010 [facility]Y-Zoster Vaccines (1 of 2) 2010 [facility]Y-RSV Vaccine: 60+ Years or (1 - Risk 60-74 years 1-dose series) 2020 [facility]Y-Influenza Vaccine (#1) 2024 [facility]Y-Obesity Intervention Completed 025, 04/23/2024, 04/05/2024, Additional history exists HPV Vaccines Aged Out No longer eligi ble based on patient's age to complete this topic [facility]Y-HIB Vaccines Aged Out No longer e ligible based on patient's age to complete this topic [facility]Y-Hepatitis A Vaccines Aged Out No longer eligible based on patient's age to complete this topic UKY-IPV Vaccines Aged Out No longer e ligible based on patient's age to complete this topic UKY-Rotavirus Vaccines Aged Out No lo nger eligible based on patient's age to complete this topic Insurance [place] [id number] [place]TH[place]IDEN Care Teams Laborer Demolition Relationship Specialty Start Date End Date Allison Tony, ANTON [address] [place] [address] [phone] (work) [facility] - General 10/17/23
--- OUTSIDE RECORDS SUMMARY | 2024-10-04 12:50 | XMS_ITS | Encounter Summary ---
Author Organization [facility] Address [address] [place] [address] Care Team Providers Care Office Machines Sales Representative Name Role Phone Allison Tony APRN Primary Care Provider [phone] Reason for Visit * Reason Comments Med Refill Encounter Details Date Type Department Care Team (Late st Contact Info) Description 11/09/2021 Refill [facility] CARDIOLOGY [address] [facility] [address] [place] [address] Maurice Mccoy MD [address]20 [facility] [address] [place] [address] Med Refill Social History Tobacco Use Types Packs/Day Years Used Date Smoking Tobacco: Every Day Cigarettes 1 30 Smokeless Tobacco: Never Alcohol Use Standard Drinks/Week Comments Not Currently 0 (1 standard drink = 0.6 oz pur e alcohol) Comments Unknown Sex and Gender Information Value Date Recorded Sex Assigned at Not on file Legal Sex Female 12:40 PM EST Gender Identity Not on file Sexual Orientation Not on file documented as of this encounter Plan of Treatment Upcoming Encounters Date Type Department Care Team (Late st Contact Info) Description 05/19/2025 1:30 PM EDT Office Visit [facility] CARDIOLOGY [address] [facility] [address] [place] [address] Maurice Mccoy MD [address]20 [facility] [address] [place] [address] documented as of this encounter Visit Diagnoses Not on filedocumented in this encounter Care Teams Office Machines Sales Representative Relationship Specialty Start Date End Date Allison Tony APRN [address] [place] [address] PCP - General Nurse Practitioner 01/01/24 documented as of this encounter
--- OUTSIDE RECORDS SUMMARY | 2024-10-04 12:50 | XMS_ITS | Clinical Summary ---
Author Organization [facility] Address [address] [place] [address] Care Team Providers Care Lumber Inspector Name Role Phone Allison Tony APRN Primary Care Provider Allergies Active Allergy Reactions Criticality Noted Date Comments Cefaclor Rash Low 04/05/2019 Tolerated Augmentin prior to admission Codeine Nausea And Vomiting 01/08/2024 Propoxyphene Rash Low 04/05/2019 Medications Multiple Vitamins-Minera ls (MULTIVITAMIN ADULTS PO) Take 1 tablet by mouth Daily. Active KRILL OIL PO Take 1 tablet by mouth Daily. Active Apple Tonny Vn-Grn Tea-Bit Or-Cr (APPLE CIDER VINEGAR PLUS) tablet Take 1 tablet by mouth Daily. Active vitamin C (ASCORBIC ACID) 500 MG tablet Take 1 tablet by mouth Daily. Active aspirin 81 MG chewable tablet Chew 1 tablet Daily. 90 tablet 3 05/04/2019 Active butalbital-acet aminophen-caffe ine (FIORICET, ESGIC) 50-325-40 MG per tablet As Needed. 03/31/2023 Active Acetaminophen 325 MG capsule 325 mg. 09/08/2023 Acti ve cetirizine (zyrTEC) 10 MG tablet 1 tablet. 09/08/2023 Active gabapentin (NEURONTIN) 100 MG capsule TAKE 1 CAPSULE BY MOUTH IN THE MORNING AND 4 NIGHTLY Active multivitamin tablet tablet Take 1 tablet by mouth Daily. Active nicotine polacrilex (NICORETTE) 2 MG gum CHEW 1 EVERY 2 HOURS NEEDED FOR NICOTINE CRAVINGS 01/05/2024 Active Rivaroxaban (XARELTO) 2.5 MG tablet Take 1 tablet by mouth 2 (Two) Times a Day. 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 Mccoy. Residual 40 to 50% proximal ED, normal left circumflex, EF 55 to 60%. 04/05/19 Echo LVEF = 54.0%. STEMI involving right coronary artery 04/05/2019 Tobacco abuse 04/05/2019 Encounters Date Type Department Care Team Description 07/29/2024 Refill [facility] CARDIOLOGY [address] [facility] [address] [place] [address] Maurice Mccoy MD Med Refill from Last 3 Months Family History Medical History Relation Name Comments Heart attack Father Brain cancer Mother Relation Name Status Comments Father Mother Social History Tobacco Use Types Packs/Day Years Used Date Smoking Tobacco: Every Day Cigarettes 1 30 Smokeless Tobacco: Never Tobacco Cessation:Ready to Q uit: Not Asked; Counseling Given: Not Answered Alcohol Use Standard Drinks/Week Comments Not Currently 0 (1 standard drink = 0.6 oz pur e alcohol) Abuse Screen Answer Date Recorded Feels Unsafe at Home or Work/School no 12/31/2023 Feels Threatened by Someone no 07/2023 Does Anyone Try to Keep You From Having Contact with Others or Doing Things Outside Your Home? no 12/31/2023 Physical Signs of Abuse Present no 12/31/2023 Comments Unknown Sex and Gender Information Value Date Recorded Sex Assigned at Not on file Legal Sex Female 12:40 PM EST Gender Identity Not on file Sexual Orientation Not on file Last Filed Vital Signs Vital Sign Reading Time Taken Comments Blood Pressure 112/68 05/13/2024 1:34 PM EDT Pulse 78 05/13/2024 1:34 PM EDT Temperature 36.8 C (98.2 F) 01/08/2024 10:10 AM EST Respiratory Rate 18 01/08/2024 10:10 AM EST Oxygen Saturation 95% 05/13/2024 1:34 PM EDT Inhaled Oxygen Concentration - - Weight 67.8 kg (149 lb 6.4 oz) 05/13/2024 1:34 P M EDT Height 160 cm (5' 3 ) 05/13/2024 1:34 PM EDT Body Mass Index 26.47 05/13/2024 1:34 PM EDT Plan of Treatment Upcoming Encounters Date Type Department Care Team (Late st Contact Info) Description 05/19/2025 1:30 PM EDT Office Visit [facility] CARDIOLOG[facility] [address] [facility] [address] [place] [address] Maurice Mccoy MD 1720 [facility] [address] [place] [address] Health Maintenance Due Date Last Done Comments Annual Gynecologic Pelvic and Breast Exam 1960 Pneumococcal Vaccine 50+ (1 of 2 - PCV) 05/03/1979 TDAP/TD VACCINES (1 - Tdap) 05/03/1979 PAP SMEAR 1981 MAMMOGRAM 2000 COLOGUARD 2005 COLON CANCER SCREENING 5 YEA R SIGMOIDOSCOPY 2005 COLONOSCOPY [address] CANCER SCREENING [address] COLONOGRAPHY 2005 FECAL OCCULT BLOOD TEST 2005 FIT Testing (1 year) 2005 LUNG CANCER SCREENING 2010 ZOSTER VACCINE (1 of 2) 2010 ANNUAL PHYSICAL 04/08/2019 HEPATITIS C SCREENING 04/08/2019 LIPID PANEL 12/11/2022 12/11/2021, 04/06/2019 COVID-19 Vaccine ( - season) 2023 INFLUENZA VACCINE 11/24/2024 Medical Devices Implanted Type Area Rail Car Unloader Device Identifier Shelf Expiration Date Model / Serial / Lot Stnt Xience Shobha Everolimus Addi 3.5x23mm - [id number] Implanted:Qty: 1 on 04/05/2019 by Maurice Mccoy MD at [facility] PATEL VASCULAR 12/18/2019 [id number] / / [id number] Procedures Procedure Name Priority Date/Time Associated Diagnosis Comments LIPID PANEL Routine 12/11/2021 8:20 AM EDT Coronary artery disease of rampart artery of rampart heart with stable angina pectoris Hyperlipidemia LDL goal <70 from Last 3 Months or Most Recently Relevant to Health Maintenance Results * Lipid Panel (12/11/2021 8:20 AM EDT) Total Cholesterol 100 0 - 200 mg/dL 12/12/2021 1:00 AM EDT [facility] Triglycerides 95 0 - 150 mg/dL 12/12/2021 1:00 AM EDT [facility] HDL Cholesterol 44 40 - 60 mg/dL 12/12/2021 1:00 AM EDT [facility] LDL Cholesterol 38 0 - 100 mg/dL 12/12/2021 1:00 AM EDT [facility] VLDL Cholesterol 18 5 - 40 mg/dL 12/12/2021 1:00 AM EDT [facility] LDL/HDL Ratio 0.84 12/12/2021 1:00 AM EDT [facility] Blood Venipuncture / Unknown 12/11/2021 8:20 AM EDT 12/11/2021 8:23 AM EDT Narrative [facility] - 12/12/2021 1:00 AM EDT Cholesterol Reference Ranges (U.S. Department of Health and Human Services ATP III Classifications) Desirable <200 mg/dL Borderline High 200-239 mg/dL High Risk >240 mg/dL Triglyceride Reference Ranges (U.S. Department of Health and Human Services ATP III Classifications) Normal <150 mg/dL Borderline High 150-199 mg/dL High 200-499 mg/dL Very High >500 mg/dL HDL Reference Ranges (U.S. Department of Health and Human Services ATP III Classifications) Low <40 mg/dl (major risk factor for CHD) High >60 mg/dl ('negative' risk factor for CHD) LDL Reference Ranges (U.S. Department of Health and Human Services ATP III Classifications) Optimal <100 mg/dL Near Optimal 100-129 mg/dL Borderline High 130-159 mg/dL High 160-189 mg/dL Very High >189 mg/dL us Maurice Mccoy MD LAB BLOOD ORDERABLES Final Re sult [facility]
[address] [place] [address], from Last 3 Months or Most Recently Relevant to Health Maintenance Insurance [place] [id number] [employer] H[employer] Advance Directives * CPR (Attempt to Resuscitate) (Latest Code Status on File) Date Activated Date Inactivated Comments 04/05/2019 2:14 PM 04/07/2019 2:45 PM Question Answer Comments Code Status (Patient has no pulse and is not breathing): CPR (Attempt to Resuscitate) Medical Interventions (Patie nt has pulse or is breathing): Full Care Teams Lumber Inspector Relationship Specialty Start Date End Date Allison Tony APRN [address] [place] [address] PCP - General Nurse Practitioner 01/01/24
--- NOTE | 2024-10-04 13:00 | CA_ITS ---
FINAL REPORT TECHNIQUE: Compression huizar scale and Doppler evaluation CLINICAL HISTORY: RLE PAIN AND EDEMA,PT ON ASA FINDINGS: Femoral and popliteal veins show normal compressibility and flow. Visualized portion of the calf veins are patent by Doppler exam. IMPRESSION: No evidence of right lower extremity deep venous thrombosis Reviewed, Interpreted and Dictated by Kendra Fitzpatrick MD Transcribed by Gail Barron Authenticated and [facility]
== END 2024-10-04 23:59 | disposition home or self-care (01) ==
LOC: RT 12:47
PROVIDERS: PCP Nurse Practitioner Family; Visit Provider Nurse Practitioner Family
DX: M79.604 Pain in right leg (principal); R60.0 Localized edema
CPT/HCPCS: 93971

== ENCOUNTER 2024-10-08 15:07 | Outpatient (CLI) | payer OTHER, SELFPAY ==
--- OUTSIDE RECORDS SUMMARY | 2024-10-08 15:09 | XMS_ITS | Clinical Summary ---
Author Organization [facility] Address [address] [place] [address] Care Team Providers Care Hourly Associate Name Role Phone Allison Tony APRN Primary Care Provider [phone] Allergies Active Allergy Reactions Criticality Noted Date [...] artery disease of n ative artery of karl[place] heart with stable angina pectoris 04/07/2019 Overview [...] Type Department Care Team Description 07/29/2024 Refill [facility] C[facility] [address] [facility] [address] [place] [address] Maurice Mccoy MD Med Refill [...] Description 05/19/2025 1:30 PM EDT Office Visit [facility] C[facility] [address] [facility] [address] [place] [address] Maurice Mccoy MD 1720 [facility] [address] [place] [address] Health Maintenance Due Date Last [...] VACCINE 11/24/2024 Medical Devices Implanted Type Area Water Resources Engineer Device Identifier Shelf Expiration Date Model / Serial / Lot Stnt Xience Shobha Everolimus Addi 3.5x23mm - [id number] Implanted:Qty: 1 on 04/05/2019 by Maurice Mccoy MD at [facility] PATEL VASCULAR 12/18/2019 [id number] / / [id number] Procedures Procedure Name Priority Date/Time Associated Diagnosis Comments LIPID PANEL Routine 12/11/2021 8:20 AM EDT Coronary artery disease of karluk artery of [place] heart with stable angina pectoris Hyperlipidemia LDL goal <70 from Last 3 Months or Most Recently Relevant to Health Maintenance Results * Lipid Panel (12/11/2021 8:20 AM EDT) Total Cholesterol 100 0 - 200 mg/dL 12/12/2021 1:00 AM EDT [facility] Triglycerides 95 0 - 150 mg/dL 12/12/2021 1:00 AM EDT [facility] HDL Cholesterol 44 40 - 60 mg/dL 12/12/2021 1:00 AM EDT [facility] LDL Cholesterol 38 0 - 100 mg/dL 12/12/2021 1:00 AM EDT [facility] VLDL Cholesterol 18 5 - 40 mg/dL 12/12/2021 1:00 AM EDT [facility] LDL/HDL Ratio 0.84 12/12/2021 1:00 AM EDT [facility] Blood Venipuncture / Unknown 12/11/2021 8:20 AM EDT 12/11/2021 8:23 AM EDT Narrative [facility] - 12/12/2021 1:00 AM EDT Cholesterol [...] LAB BLOOD ORDERABLES Final Re sult [facility]
[address] [place] [address], from Last 3 Months or Most Recently Relevant to Health Maintenance Insurance [place] [id number] [employer] HMO Advance Directives * CPR (Attempt to Resuscitate) (Latest Code Status on File) Date Activated Date Inactivated Comments 04/05/2019 2:14 PM 04/07/2019 2:45 PM Question Answer Comments Code Status (Patient has no pulse and is not breathing): CPR (Attempt to Resuscitate) Medical Interventions (Patie nt has pulse or is breathing): Full Care Teams Hourly Associate Relationship Specialty Start Date End Date Allison Tony APRN [address] [place] [address] PCP - General Nurse Practitioner 01/01/24
--- OUTSIDE RECORDS SUMMARY | 2024-10-08 15:09 | XMS_ITS | Encounter Summary ---
Author Organization [facility] Address [address] [place] [address] Care Team Providers Care Telecommunications Project Manager Name Role Phone Allison Tony APRN Primary Care Provider [phone] Reason for Visit * Reason Comments Med Refill Encounter Details Date Type Department Care Team (Late st Contact Info) Description 11/09/2021 Refill [facility] CARDIOLOGY [address] [facility] [address] [place] [address] Maurice Mccoy MD [address]20 [facility] [address] [place] [address] Med Refill Social History Tobacco [...] Description 05/19/2025 1:30 PM EDT Office Visit [facility] CARDIOLOGY [address] [facility] [address] [place] [address] Maurice Mccoy MD [address] [facility] [address] [place] [address] documented as of this encounter Visit Diagnoses Not on filedocumented in this encounter Care Teams Telecommunications Project Manager Relationship Specialty Start Date End Date Allison Tony APRN [address] [place] [address] PCP - General Nurse Practitioner 01/01/24 documented as of this encounter
--- OUTSIDE RECORDS SUMMARY | 2024-10-08 15:09 | XMS_ITS | Clinical Summary ---
Author Organization [facility] Address [address] [place] [address] Care Team Providers Care Borematic Machine Operator Name Role Phone TonyAllison Viry WALTON Primary Care Provider [phone] Allergies Active Allergy Reactions Criticality Noted Date [...] Description 08/06/2024 1:00 PM EDT Office Visit [facility] [place] [address], [address] [place] [address] Derek Chopra MD Exotropia, alternating [...] C Screening 1960 [facility]-/Child/Adol SDOH Screenings 1960 [id number] Vaccine (#1) 1965 [facility]- SDOH Screenings 1978 [...] to complete this topic Insurance [place] [id number] [place]IDEN Care Teams Borematic Machine Operator Relationship Specialty Start Date End Date Allison Tony, ANTON [address] [place] [address] [phone] (work) [facility] - General 10/17/23
--- NOTE | 2024-10-08 15:30 | US_ITS ---
FINAL REPORT CLINICAL HISTORY: CLAUDICATION,REST PAIN,SMOKER FINDINGS: LOWER EXTREMITY SEGMENTAL PRESSURE MEASUREMENTS FINDINGS: Pressure indices are as follows: RIGHT LOWER EXTREMITY: Upper thigh: 0.94 Calf: 1.01 Ankle, posterior tibial artery: 1.03 Ankle, dorsalis pedis: 1.00 Toe: 0.5 Comments: No evidence of significant obstructive peripheral vascular disease LEFT LOWER EXTREMITY: Upper thigh: 0.97 Calf: 1.03 Ankle, posterior tibial artery: 0.96 Ankle, dorsalis pedis: 0.97 Toe: 0.87 Comments: No evidence of significant obstructive PVD Authenticated and ERN
== END 2024-10-08 23:59 | disposition home or self-care (01) ==
LOC: RT 15:07
PROVIDERS: PCP Nurse Practitioner Family; Visit Provider Nurse Practitioner Family
DX: M79.604 Pain in right leg (principal); I73.9 Peripheral vascular disease, unspecified; F17.200 Nicotine dependence, unspecified, uncomplicated
CPT/HCPCS: 93923

== ENCOUNTER 2024-10-21 11:18 | Outpatient (CLI) | payer OTHER, SELFPAY ==
[2024-10-21 13:33] LABS: Coronavirus 19, PCR Not Detected (NotDetected); Influenza A, PCR Not Detected (NotDetected); Influenza B, PCR Not Detected (NotDetected)
--- OUTSIDE RECORDS SUMMARY | 2024-10-22 12:50 | XMS_ITS | Clinical Summary ---
Author Organization [facility] Address [address] [place] [address] Care Team Providers Care Special Services Director Name Role Phone TonyAllison Viry WALTON Primary Care Provider [phone] Allergies Active Allergy Reactions Criticality Noted Date [...] PM EDT Office Visit [facility] [place] [address] [place] [address] Derek Chopra MD Exotropia, alternating (Primary Dx) 08/06/2024 Travel 07/30/2024 Travel from Last 3 Months Family History Medical History Relation Name Comments Anesthesia problems Neg Hx Malig Hyperthermia Neg Hx Social History Tobacco Use Types Packs/Day Years Used Date Smoking Tobacco: Every Day Cigarettes 1 49.7 Started: 02/24/1975 Passive Smoke Exposure: Current Smokeless [...] 04/07/2024 8:53 AM EST Plan of Treatment Upcoming Encounters Date Type Department Care Team (Late st Contact Info) Description 02/25/2025 11:00 AM EST Consult [place] [facility] [address] [place] [address] Mya Sanders MD [address] [place] [address] Health Maintenance Due Date Last Done Comments [facility]Y-Depression Screening 1960 [facility]-HIV Screening 1960 [facility]-Hepatitis C Screening 1960 [facility]-/Child/Adol SDOH Screenings 1960 [id number] Vaccine (#1) 1965 [facility]- SDOH Screenings 1978 [...] patient's age to complete this topic Insurance [address] [place], [place] [id number] [place] Care Teams Special Services Director Relationship Specialty Start Date End Date Allison Tony APRN [address] [place] [address] PCP - General 10/17/23
--- OUTSIDE RECORDS SUMMARY | 2024-10-22 12:50 | XMS_ITS | Encounter Summary ---
Author Organization [facility] Address [address] [place] [address] Care Team Providers Care Mat Man Name Role Phone Allison Tony APRN Primary Care Provider [phone] Reason for Visit * Reason Comments Med Refill Encounter Details Date Type Department Care Team (Late st Contact Info) Description 11/09/2021 Refill [facility] CARDIOLOG[facility] [address] [facility] [address] [place] [address] Maurice Mccoy MD [address] [facility] [address] [place] [address] Med Refill Social History Tobacco [...] Description 05/19/2025 1:30 PM EDT Office Visit [facility] C[facility] [address] [facility] [address] [place] [address] Maurice Mccoy MD [address] [facility] [address] [place] [address] documented as of this encounter Visit Diagnoses Not on filedocumented in this encounter Care Teams Mat Man Relationship Specialty Start Date End Date Allison Tony APRN [address] [place] [address] PCP - General Nurse Practitioner 01/01/24 documented as of this encounter
--- OUTSIDE RECORDS SUMMARY | 2024-10-22 12:50 | XMS_ITS | Clinical Summary ---
Author Organization [facility] Address [address] [place] [address] Care Team Providers Care Tail Dogger Name Role Phone Allison Tony APRN Primary Care Provider [phone] Allergies Active Allergy Reactions Criticality Noted Date [...] artery disease of n ative artery of nikolai heart with stable angina pectoris 04/07/2019 Overview [...] Type Department Care Team Description 07/29/2024 Refill [facility] [address] [facility] [address] [place] [address] Maurice Mccoy MD Med Refill [...] Description 05/19/2025 1:30 PM EDT Office Visit [facility]Y [address] [facility] [address] [place] [address] Maurice Mccoy MD [address] [facility] [address] [place] [address] Health Maintenance Due Date Last [...] VACCINE 11/24/2024 Medical Devices Implanted Type Area Primary Health Organisation Manager Device Identifier Shelf Expiration Date Model / Serial / Lot Stnt Xience Shobha Everolimus Addi 3.5x23mm - [id number] Implanted:Qty: 1 on 04/05/2019 by Maurice Mccoy MD at [facility]EL VASCULAR 12/18/2019 [id number] / / [id number] Procedures Procedure Name Priority Date/Time Associated Diagnosis Comments LIPID PANEL Routine 12/11/2021 8:20 AM EDT Coronary artery disease of nikolai artery of nikolai heart with stable angina pectoris Hyperlipidemia LDL goal <70 from Last 3 Months or Most Recently Relevant to Health Maintenance Results * Lipid Panel (12/11/2021 8:20 AM EDT) Total Cholesterol 100 0 - 200 mg/dL 12/12/2021 1:00 AM EDT [facility] Triglycerides 95 0 - 150 mg/dL 12/12/2021 1:00 AM EDT [facility] HDL Cholesterol 44 40 - 60 mg/dL 12/12/2021 1:00 AM EDT [facility] LDL Cholesterol 38 0 - 100 mg/dL 12/12/2021 1:00 AM EDT [facility] VLDL Cholesterol 18 5 - 40 mg/dL 12/12/2021 1:00 AM EDT [facility] LDL/HDL Ratio 0.84 12/12/2021 1:00 AM EDT [facility] Blood Venipuncture / Unknown 12/11/2021 8:20 AM EDT 12/11/2021 8:23 AM EDT Narrative [facility] - 12/12/2021 1:00 AM EDT Cholesterol [...] MD LAB BLOOD ORDERABLES Final Re sult [facility]
[address] [place] [address], from Last 3 Months or Most Recently Relevant to Health Maintenance Insurance [place] [id number] [employer] [address] HMO Advance Directives * CPR (Attempt to Resuscitate) (Latest Code Status on File) Date Activated Date Inactivated Comments 04/05/2019 2:14 PM 04/07/2019 2:45 PM Question Answer Comments Code Status (Patient has no pulse and is not breathing): CPR (Attempt to Resuscitate) Medical Interventions (Patie nt has pulse or is breathing): Full Care Teams Tail Dogger Relationship Specialty Start Date End Date Allison Tony APRN [address] [place] [address] PCP - General Nurse Practitioner 01/01/24
== END 2024-10-21 23:59 | disposition home or self-care (01) ==
LOC: LAB.DROPOF 10-22 12:45
PROVIDERS: PCP Nurse Practitioner Family; Visit Provider Nurse Practitioner Family
DX: J02.9 Acute pharyngitis, unspecified (principal); R11.0 Nausea; R21 Rash and other nonspecific skin eruption
CPT/HCPCS: 87631

== ENCOUNTER 2024-11-09 11:25 | Outpatient (CLI) | payer OTHER, SELFPAY ==
[2024-11-09 14:15] LABS: Coronavirus 19, PCR Not Detected (NotDetected); Influenza A, PCR Not Detected (NotDetected); Influenza B, PCR Not Detected (NotDetected)
--- OUTSIDE RECORDS SUMMARY | 2024-11-10 12:22 | XMS_ITS | Encounter Summary ---
Author Organization [facility] Address [address] [place] [address] Care Team Providers Care Senior Java Software Engineer Name Role Phone Allison Tony APRN Primary Care Provider [phone] Reason for Visit * Reason Comments Med Refill Encounter Details Date Type Department Care Team (Late st Contact Info) Description 11/09/2021 Refill [facility] C[facility]IOLOGY [address] [facility] [address] [place] [address] Maurice Mccoy MD [address] [facility] [address] [place] [address] Med Refill Social History Tobacco [...] Description 05/19/2025 1:30 PM EDT Office Visit [facility] [address] [facility] [address] [place] [address] Maurice Mccoy MD [address] [facility] [address] [place] [address] documented as of this encounter Visit Diagnoses Not on filedocumented in this encounter Care Teams Senior Java Software Engineer Relationship Specialty Start Date End Date Allison Tony APRN [address] [place] [address] PCP - General Nurse Practitioner 01/01/24 documented as of this encounter
--- OUTSIDE RECORDS SUMMARY | 2024-11-10 12:22 | XMS_ITS | Clinical Summary ---
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 Mccoy. Residual 40 to 50% proximal ED, normal left circumflex, EF 55 to 60%. 04/05/19 Echo LVEF = 54.0%. STEMI involving right coronary artery 04/05/2019 Tobacco abuse 04/05/2019 Family History Medical History Relation Name Comments [...] Description 05/19/2025 1:30 PM EDT Office Visit [facility] [address] [facility] [address] [place] [address] Maurice Mccoy MD [address] [facility] [address] [place] [address] Health Maintenance Due Date Last [...] 12/11/2021, 04/06/2019 COVID-19 Vaccine ( - season) 2024 INFLUENZA VACCINE 11/24/2024 Medical Devices Implanted Type Area Desktop Support Technician Device Identifier Shelf Expiration Date Model / Serial / Lot Stnt Xience Shobha Everolimus Addi 3.5x23mm - [id number] Implanted:Qty: 1 on 04/05/2019 by Maurice Mccoy MD at [facility] PATEL VASCULAR 12/18/2019 [id number] / / [id number] Procedures Procedure Name Priority Date/Time Associated Diagnosis Comments SCANNED - IMAGING 10/08/2024 LIPID PANEL Routine 12/11/2021 8:20 AM EDT 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 Hyperlipidemia LDL goal <70 from Last 3 Months or Most Recently Relevant to Health Maintenance Results * IMAGING SCANNED (10/08/2024) Anatomical Region Laterality Modality Radiographic Melissa ging [facility] IMG DIAGNOSTIC IMAGING ORDERA BLES Final Result * Lipid Panel (12/11/2021 8:20 AM EDT) Total Cholesterol 100 0 - 200 mg/dL 12/12/2021 1:00 AM EDT [facility] Triglycerides 95 0 - 150 mg/dL 12/12/2021 1:00 AM EDT [facility] HDL Cholesterol 44 40 - 60 mg/dL 12/12/2021 1:00 AM EDT [facility] LDL Cholesterol 38 0 - 100 mg/dL 12/12/2021 1:00 AM EDT [facility] VLDL Cholesterol 18 5 - 40 mg/dL 12/12/2021 1:00 AM EDT [facility] LDL/HDL Ratio 0.84 12/12/2021 1:00 AM EDT [facility] Blood Venipuncture / Unknown 12/11/2021 8:20 AM EDT 12/11/2021 8:23 AM EDT Narrative [facility] - 12/12/2021 1:00 AM EDT Cholesterol [...] MD LAB BLOOD ORDERABLES Final Re sult [facility]
[address] [place] [address], from Last 3 Months or Most Recently Relevant to Health Maintenance Insurance [place] [id number] [facility] PATHWAY HMO Advance Directives * CPR (Attempt to Resuscitate) (Latest Code Status on File) Date Activated Date Inactivated Comments 04/05/2019 2:14 PM 04/07/2019 2:45 PM Question Answer Comments Code Status (Patient has no pulse and is not breathing): CPR (Attempt to Resuscitate) Medical Interventions (Patie nt has pulse or is breathing): Full Care Teams Heart Surgeon Relationship Specialty Start Date End Date Allison Tony APRN [address] [place] [address] PCP - General Nurse Practitioner 01/01/24
--- OUTSIDE RECORDS SUMMARY | 2024-11-10 12:22 | XMS_ITS | Clinical Summary ---
Author Organization [facility] Address [address] [place] [address] Care Team Providers Care Container Packer Operator Name Role Phone TonyAllison Viry WALTON Primary Care Provider [phone] Allergies Active Allergy Reactions Criticality Noted Date [...] of strabismus surgery 10/17/2023 Exotropia, alternating 10/17/2023 Family History Medical History Relation Name Comments [...] Consult [place] [facility] [address] [place] [address] Mya Sanders MD [address] [place] [address] Health Maintenance Due Date Last Done Comments [facility]-Depression Screening 1960 [facility]-HIV Screening 1960 [facility]-Hepatitis C Screening 1960 [facility]-Infant/Child/Adol SDOH Screenings 1960 [id number] Vaccine (#1) 1965 [facility]- SDOH Screenings 1978 [...] complete this topic Insurance [address] [place], [place] [id number] MANUEL Care Teams Container Packer Operator Relationship Specialty Start Date End Date Allison Tony, NURSING SERVICES MANAGER [address] [place] [address] PCP - General 10/17/23
== END 2024-11-09 23:59 ==
LOC: LAB.DROPOF 11-10 12:21
PROVIDERS: PCP Nurse Practitioner Family; Visit Provider Nurse Practitioner Family
DX: R68.89 Other general symptoms and signs (principal)
CPT/HCPCS: 87631

== ENCOUNTER 2024-11-23 12:15 | Outpatient (CLI) | payer OTHER, SELFPAY ==
[2024-11-23 14:00] LABS: Coronavirus 19, PCR Not Detected (NotDetected); Influenza A, PCR Not Detected (NotDetected); Influenza B, PCR Not Detected (NotDetected)
--- OUTSIDE RECORDS SUMMARY | 2024-11-24 10:26 | XMS_ITS | Clinical Summary ---
Author Organization [facility] Address [address] [place] [address] Care Team Providers Care Director Craft Center Name Role Phone Allison Tony APRN Primary Care Provider [phone] Allergies Active Allergy Reactions Criticality Noted Date [...] artery disease of n ative artery of cantwell heart with stable angina pectoris 04/07/2019 Overview [...] Care Team (Late st Contact Info) Description 04/11/2025 2:30 PM EST Office [facility] NEUROLOGY [address] [facility] [address] [place] [address] Ania Burkett, ANTON [address] [facility] [address] [place], [place] [id number] 05/19/2025 1:30 PM EDT Office [facility] C[facility] [address] [facility] [address] [place] [address] Maurice Mccoy MD [address] [facility] [address] [place], [place] [id number] Health Maintenance Due Date Last Done Comments [...] SCREENING 04/08/2019 LIPID PANEL 12/11/2022 12/11/2021, 04/06/2019 INFLUENZA VACCINE 09/24/2024 Medical Devices Implanted Type Area Manager Heart Failure Device Identifier Shelf Expiration Date Model / Serial / Lot Stnt Xience Shobha Everolimus Addi 3.5x23mm - [id number] Implanted:Qty: 1 on 04/05/2019 by Maurice Mccoy MD at [facility] PATEL VASCULAR 12/18/2019 [id number] / / [id number] Procedures Procedure Name Priority Date/Time Associated Diagnosis Comments SCANNED - IMAGING 10/08/2024 LIPID PANEL Routine 12/11/2021 8:20 AM EDT 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 Hyperlipidemia LDL goal <70 from Last 3 Months or Most Recently Relevant to Health Maintenance Results * IMAGING SCANNED (10/08/2024) Anatomical Region Laterality Modality Radiographic Melissa ging [facility] IMG DIAGNOSTIC IMAGING ORDERA BLES Final Result * Lipid Panel (12/11/2021 8:20 AM EDT) Total Cholesterol 100 0 - 200 mg/dL 12/12/2021 1:00 AM EDT [facility] Triglycerides 95 0 - 150 mg/dL 12/12/2021 1:00 AM EDT [facility] HDL Cholesterol 44 40 - 60 mg/dL 12/12/2021 1:00 AM EDT [facility] LDL Cholesterol 38 0 - 100 mg/dL 12/12/2021 1:00 AM EDT [facility] VLDL Cholesterol 18 5 - 40 mg/dL 12/12/2021 1:00 AM EDT [facility] LDL/HDL Ratio 0.84 12/12/2021 1:00 AM EDT [facility] Blood Venipuncture / Unknown 12/11/2021 8:20 AM EDT 12/11/2021 8:23 AM EDT Narrative [facility] - 12/12/2021 1:00 AM EDT [...] MD LAB BLOOD ORDERABLES Final Re sult [facility]
[address] [place] [address], from Last 3 Months or Most Recently Relevant to Health Maintenance Insurance [place] [id number] [employer] [address] HMO Advance Directives * CPR (Attempt to Resuscitate) (Latest Code Status on File) Date Activated Date Inactivated Comments 04/05/2019 2:14 PM 04/07/2019 2:45 PM Question Answer Comments Code Status (Patient has no pulse and is not breathing): CPR (Attempt to Resuscitate) Medical Interventions (Patie nt has pulse or is breathing): Full Care Teams Director Craft Center Relationship Specialty Start Date End Date Allison Tony APRN [address] [place] [address] PCP - General Nurse Practitioner 01/01/24
--- OUTSIDE RECORDS SUMMARY | 2024-11-24 10:27 | XMS_ITS | Encounter Summary ---
Author Organization [facility] Address [address] [place] [address] Care Team Providers Care Credit Verification Clerk Name Role Phone Allison Tony APRN Primary Care Provider [phone] Reason for Visit * Reason Comments Med Refill Encounter Details Date Type Department Care Team (Late st Contact Info) Description 11/09/2021 Refill [facility] [address] [facility] [place] [address] Maurice Mccoy MD [address] [facility] [address] [place] [address] Med Refill Social History Tobacco Use Types [...] Description 04/11/2025 2:30 PM EST Office Visit [facility] [address] [facility] [address] [place] [address] Ania Burkett APRN [address] [facility] [address] [place] [address] 05/19/2025 1:30 PM EDT Office Visit [facility] [address] [facility] [address] [place] [address] Maurice Mccoy MD [address] [facility] [address] [place] [address] documented as of this encounter Visit Diagnoses Not on filedocumented in this encounter Care Teams Credit Verification Clerk Relationship Specialty Start Date End Date Allison Tony APRN [address] [place] [address] PCP - General Nurse Practitioner 01/01/24 documented as of this encounter
--- OUTSIDE RECORDS SUMMARY | 2024-11-24 10:27 | XMS_ITS | Clinical Summary ---
Author Organization [facility] Address [address] [place] [address] Care Team Providers Care Mattress Packer Name Role Phone TonyAllison Viry WALTON Primary Care Provider [phone] Allergies Active Allergy Reactions Criticality Noted Date [...] 10/20/2023 Acquired involutional ptosis of both eyelids Exotropia, alternating 10/17/2023 Resolved Problems Problem Noted Date Diagnosed Date Resolved Date History of strabismus surgery 10/17/2023 11/14/2024 Family History Medical History Relation Name Comments [...] Consult [place] [facility] [address] [place] [address] Mya Sanders MD [address] [place] [address] Health Maintenance Due Date Last Done Comments [facility]-Depression Screening 1960 [facility]-HIV Screening 1960 [facility]-Hepatitis C Screening 1960 [facility]-Infant/Child/Adol SDOH Screenings 1960 [id number] Vaccine (#1) 1965 [facility]- SDOH Screenings 1978 [...] patient's age to complete [place] [id number] [place] Care Teams Mattress Packer Relationship Specialty Start Date End Date Allison Tony, SUPERVISOR SHOW OPERATIONS [address] [place] [address] PCP - General 10/17/23
== END 2024-11-23 23:59 ==
LOC: LAB.DROPOF 11-24 09:53
PROVIDERS: PCP Nurse Practitioner Family; Visit Provider Nurse Practitioner Family
DX: R05.9 Cough, unspecified (principal); R06.2 Wheezing; R06.02 Shortness of breath; J34.89 Other specified disorders of nose and nasal sinuses; R09.81 Nasal congestion
CPT/HCPCS: 87631

== ENCOUNTER 2024-11-30 13:53 | Outpatient (CLI) | payer OTHER, SELFPAY ==
--- OUTSIDE RECORDS SUMMARY | 2024-11-30 13:55 | XMS_ITS | Clinical Summary ---
Author Organization [facility] Address [address] [place] [address] Care Team Providers Care Tunnel Elastic Operator Lockstitch Name Role Phone Allison Tony APRN Primary Care Provider [phone] Allergies Active Allergy Reactions Criticality Noted Date [...] artery disease of n ative artery of wiyot heart with stable angina pectoris 04/07/2019 Overview [...] Description 04/11/2025 2:30 PM EST Office Visit [facility]UROLOG[facility] [address] [facility] [address] [place] [address] Ania Burkett, ANTON [address] [facility] [address] [place], [place] [address] 05/19/2025 1:30 PM EDT Office Visit [facility] [address] [facility] [address] [place] [address] Maurice Mccoy MD [address] [facility] [address] [place], [place] [address] Health Maintenance Due Date Last Done Comments [...] VACCINE 09/24/2024 Medical Devices Implanted Type Area Disability Representative Device Identifier Shelf Expiration Date Model / Serial / Lot Stnt Xience Shobha Everolimus Addi 3.5x23mm - [id number] Implanted:Qty: 1 on 04/05/2019 by Maurice Mccoy MD at [facility] PATEL VASCULAR 12/18/2019 [id number] / / [id number] Procedures Procedure Name Priority Date/Time Associated Diagnosis Comments SCANNED - IMAGING 10/08/2024 LIPID PANEL Routine 12/11/2021 8:20 AM EDT 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 Hyperlipidemia LDL goal <70 from Last 3 Months or Most Recently Relevant to Health Maintenance Results * IMAGING SCANNED (10/08/2024) Anatomical Region Laterality Modality Radiographic Melissa ging [facility] IMG DIAGNOSTIC IMAGING ORDERA BLES Final Result * Lipid Panel (12/11/2021 8:20 AM EDT) Total Cholesterol 100 0 - 200 mg/dL 12/12/2021 1:00 AM EDT [facility] Triglycerides 95 0 - 150 mg/dL 12/12/2021 1:00 AM EDT [facility] HDL Cholesterol 44 40 - 60 mg/dL 12/12/2021 1:00 AM EDT [facility] LDL Cholesterol 38 0 - 100 mg/dL 12/12/2021 1:00 AM EDT [facility] VLDL Cholesterol 18 5 - 40 mg/dL 12/12/2021 1:00 AM EDT [facility] LDL/HDL Ratio 0.84 12/12/2021 1:00 AM EDT [facility] Blood Venipuncture / Unknown 12/11/2021 8:20 AM EDT 12/11/2021 8:23 AM EDT Narrative [facility] - 12/12/2021 1:00 AM EDT [...] MD LAB BLOOD ORDERABLES Final Re sult [facility]
[address] [place] [address], from Last 3 Months or Most Recently Relevant to Health Maintenance Insurance [place] [id number] [employer] [address] HMO Advance Directives * CPR (Attempt to Resuscitate) (Latest Code Status on File) Date Activated Date Inactivated Comments 04/05/2019 2:14 PM 04/07/2019 2:45 PM Question Answer Comments Code Status (Patient has no pulse and is not breathing): CPR (Attempt to Resuscitate) Medical Interventions (Patie nt has pulse or is breathing): Full Care Teams Tunnel Elastic Operator Lockstitch Relationship Specialty Start Date End Date Allison Tony APRN [address] [place] [address] PCP - General Nurse Practitioner 01/01/24
--- OUTSIDE RECORDS SUMMARY | 2024-11-30 13:55 | XMS_ITS | Clinical Summary ---
Author Organization [facility] Address [address] [place] [address] Care Team Providers Care Die Engraving Supervisor Name Role Phone TonyAllison Viry WALTON Primary Care Provider [phone] Allergies Active Allergy Reactions Criticality Noted Date [...] Date Smoking Tobacco: Every Day Cigarettes 1 49.8 Started: 02/24/1975 Passive Smoke Exposure: Current Smokeless [...] Consult [place] [facility] [address] [place] [address] Mya Sanders MD [address] [place] [address] Health Maintenance Due Date Last Done Comments [facility]-Depression Screening 1960 [facility]-HIV Screening 1960 [facility]-Hepatitis C Screening 1960 [facility]-Infant/Child/Adol SDOH Screenings 1960 [id number] Vaccine (#1) 1965 [facility]- SDOH Screenings 1978 [...] to complete [place] [phone] [place]M Care Teams Die Engraving Supervisor Relationship Specialty Start Date End Date Allison Tony, JIRA ADMINISTRATOR [address] [place] [address] PCP - General 10/17/23
--- OUTSIDE RECORDS SUMMARY | 2024-11-30 13:55 | XMS_ITS | Encounter Summary ---
Author Organization [facility] Address [address] [place] [address] Care Team Providers Care Cloth Seconds Sorter Name Role Phone Allison Tony APRN Primary Care Provider [phone] Reason for Visit * Reason Comments Med Refill Encounter Details Date Type Department Care Team (Late st Contact Info) Description 11/09/2021 Refill [facility] C[facility]IOLOG[facility] [address] [facility] [address] [place] [address] Maurice Mccoy MD [address] [facility] [address] [place] [address] Med Refill Social History Tobacco Use Types [...] Description 04/11/2025 2:30 PM EST Office Visit [facility] NEUR[facility] [address] [facility] [address] [place] [address] Ania Burkett APRN [address] [facility] [address] [place] [address] 05/19/2025 1:30 PM EDT Office Visit [facility] [address] [facility] [address] [place] [address] Maurice Mccoy MD [address] [facility] [address] [place] [address] documented as of this encounter Visit Diagnoses Not on filedocumented in this encounter Care Teams Cloth Seconds Sorter Relationship Specialty Start Date End Date Allison Tony APRN [address] [place] [address] PCP - General Nurse Practitioner 01/01/24 documented as of this encounter
--- NOTE | 2024-11-30 14:14 | XR_ITS ---
FINAL REPORT CLINICAL HISTORY: acute cough COMPARISON: 03/31/2024 FINDINGS: AP and lateral views of the chest were obtained. There is no prior exam for comparison. The cardiac and mediastinal silhouettes are within normal limits. There is a spiculated, left lower lobe nodule concerning for malignancy which was seen on prior CT. Lungs are otherwise clear. There is underlying emphysema. There is no pleural effusion or pneumothorax. No osseous abnormality is identified. IMPRESSION: Spiculated left lower lobe nodule concerning for malignancy. Recommend PET/CT if not already performed. Reviewed, Interpreted and Dictated by Vesta Obregon MD Transcribed by Marleen Khan Authenticated and [facility]
[2024-11-30 15:41] LABS: Hematocrit 48.0 % (37.0-47.0); Hemoglobin 16.0 g/dL (12.2-16.2); Immature Granulocytes % 0.4 %; Mean Corpuscular HGB Conc 33.3 g/dL (31.8-35.4); Mean Corpuscular Hemoglobin 30.5 pg (27.0-31.2); Mean Corpuscular Volume 91.4 fl (81-99); Nucleated Red Blood Cells % 0 %; Platelet Count 228 K/mm3 (142-424); Red Blood Count 5.25 M/mm3 (4.20-5.40); Red Cell Distribution Width-SD 45.8 fL; White Blood Count 8.6 K/mm3 (4.8-10.8)
== END 2024-11-30 23:59 | disposition home or self-care (01) ==
LOC: LAB 13:54
PROVIDERS: PCP Nurse Practitioner Family; Visit Provider Nurse Practitioner Family
DX: R91.1 Solitary pulmonary nodule (principal); R05.1 Acute cough
CPT/HCPCS: 36415; 71046; 85025; 87070; 87205

== ENCOUNTER 2024-12-13 15:07 | Outpatient (RCR) | payer OTHER, SELFPAY ==
--- NOTE | 2024-12-13 15:41 | HMH.PTOPEV ---
PT Evaluation Rehab PT Outpatient Evaluation Start: 12/13/24 15:09 Freq: Status: Active Protocol: Document 12/13/24 15:34 ALYSON (Rec: 12/13/24 15:39 ALYSON [id number]) E-signed By Scout Fisher, PT Outpatient Therapy Subjective History Subjective History Pt presents to [facility] outpatient PT with a referral for R leg pain. Pt reports that her pain began in June but she has not had any pain in the past month. Pt reports that she does not want to do PT. She reports that she goes to the line maintenance technician at the end of next month and if they want her to do PT she will get another referral. New diagnosis of No cancer in past 12 months? Level of pain today 0 (0-10) Pain scale - at its 0 best (0-10) Pain scale - at its 0 worst (0-10) Miscellaneous Dx PT Eval Objective Objective Pt presents with no functional impairments, currently. Outpatient Therapy Assessment Prognosis Rehab Potential Innapropriate for Skilled Therapy Clinical Impression Consistent with Yes Diagnosis Consistent with R leg pain Outpatient Therapy Plan of Care Treatment Plan May Include Therapeutic Exercise Yes Including Home Exercise Program Therapeutic Yes Activities to Return to Previous Functional/Work Level Frequency Times per week 1 Duration Number of Weeks 1 Addendums This patient is a No candidate for social or vocational rehab ? Patient/Guardian Yes verbally acknowledges understanding of treatment program and consents to further treatment? Patient/Guardian Yes verbally acknowledges understanding of diagnosis, prognosis and goals for treatment? Eval Complexity PT Charges [id number] - Low Complexity Shoulder/Elbow Eval Shoulder Objective Measurements Elbow Objective Measurements PHYSICIAN CERTIFICATION: I certify the specified therapy services for Anisha Geiger are required, authorized, and reviewed every 30 days.
== END 2024-12-13 23:59 | disposition home or self-care (01) ==
LOC: PT 15:07
PROVIDERS: PCP Nurse Practitioner Family; Visit Provider Nurse Practitioner Family
DX: M79.604 Pain in right leg (principal)
CPT/HCPCS: 97161

== ENCOUNTER 2025-02-10 14:45 | Outpatient (CLI) | payer OTHER, SELFPAY ==
[2025-02-10 16:52] LABS: Coronavirus 19, PCR Not Detected (NotDetected); Influenza A, PCR Not Detected (NotDetected); Influenza B, PCR Not Detected (NotDetected)
--- OUTSIDE RECORDS SUMMARY | 2025-02-11 11:04 | XMS_ITS | Clinical Summary ---
Author Organization [facility] Address [address] [place] [address] Care Team Providers Care Real Estate Agent Name Role Phone Allison Tony APRN Primary Care Provider [phone] Allergies Active Allergy Reactions Criticality Noted Date [...] artery disease of n ative artery of redding heart with stable angina pectoris 04/07/2019 Overview [...] Description 04/11/2025 2:30 PM EST Office Visit [facility] [address] [facility] [address] [place] [address] Ania Burkett, ANTON [address] [facility] [address] [place], [place] [id number] 05/19/2025 1:30 PM EDT Office Visit [facility] [address] [facility] [address] [place] [address] Maurice Mccoy MD [address] [facility] [address] [place], [place] [id number] Health Maintenance Due Date Last Done Comments [...] VACCINE 09/24/2024 Medical Devices Implanted Type Area Cargo And Container Inspector Device Identifier Shelf Expiration Date Model / Serial / Lot Stnt Xience Shobha Everolimus Addi 3.5x23mm - [id number] Implanted:Qty: 1 on 04/05/2019 by Maurice Mccoy MD at [facility]ULAR 12/18/2019 [id number] / / [id number] Procedures Procedure Name Priority Date/Time Associated Diagnosis Comments LIPID PANEL Routine 12/11/2021 8:20 AM EDT Coronary artery disease of 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 Hyperlipidemia LDL goal <70 from Last 3 Months or Most Recently Relevant to Health Maintenance Results * Lipid Panel (12/11/2021 8:20 AM EDT) Total Cholesterol 100 0 - 200 mg/dL 12/12/2021 1:00 AM EDT [facility] Triglycerides 95 0 - 150 mg/dL 12/12/2021 1:00 AM EDT [facility] HDL Cholesterol 44 40 - 60 mg/dL 12/12/2021 1:00 AM EDT [facility] LDL Cholesterol 38 0 - 100 mg/dL 12/12/2021 1:00 AM EDT [facility] VLDL Cholesterol 18 5 - 40 mg/dL 12/12/2021 1:00 AM EDT [facility] LDL/HDL Ratio 0.84 12/12/2021 1:00 AM EDT [facility] Blood Venipuncture / Unknown 12/11/2021 8:20 AM EDT 12/11/2021 8:23 AM EDT Narrative [facility] - 12/12/2021 1:00 AM EDT Cholesterol [...] MD LAB BLOOD ORDERABLES Final Re sult [facility]
[address] [place] [address], from Last 3 Months or Most Recently Relevant to Health Maintenance Insurance [place] [id number] [employer] Advance Directives * CPR (Attempt to Resuscitate) (Latest Code Status on File) Date Activated Date Inactivated Comments 04/05/2019 2:14 PM 04/07/2019 2:45 PM Question Answer Comments Code Status (Patient has no pulse and is not breathing): CPR (Attempt to Resuscitate) Medical Interventions (Patie nt has pulse or is breathing): Full Care Teams Real Estate Agent Relationship Specialty Start Date End Date Allison Tony APRN [address] [place] [address] [place] [id number] PCP - General Nurse Practitioner 01/01/24
--- OUTSIDE RECORDS SUMMARY | 2025-02-11 11:04 | XMS_ITS | Encounter Summary ---
Author Organization [facility] Address [address] [place] [address] Care Team Providers Care Gardener Florist Name Role Phone Allison Toyn APRN Primary Care Provider [phone] Reason for Visit * Reason Comments Med Refill Encounter Details Date Type Department Care Team (Late st Contact Info) Description 11/09/2021 Refill [facility] [address] [facility] [address] [place] [address] Maurice Mccoy MD [address] [facility] [address] [place] [address] Med Refill Social History Tobacco Use Types [...] Description 04/11/2025 2:30 PM EST Office Visit [facility] [address] [facility] [address] [place] [address] Ania Burkett APRN [address] [facility] [address] [place] [address] 05/19/2025 1:30 PM EDT Office Visit [facility] [address] [facility] [address] [place] [address] Maurice Mccoy MD [address] [facility] [address] [place] [address] documented as of this encounter Visit Diagnoses Not on filedocumented in this encounter Care Teams Gardener Florist Relationship Specialty Start Date End Date Allison Tony APRN [address] [place] [address] PCP - General Nurse Practitioner 01/01/24 documented as of this encounter
--- OUTSIDE RECORDS SUMMARY | 2025-02-11 11:04 | XMS_ITS | Clinical Summary ---
Author Organization [facility] Address [address] [place] [address] Care Team Providers Care Office Equipment Technician Name Role Phone TonyAllison Viry WALTON Primary Care Provider [phone] Allergies Active Allergy Reactions Criticality Noted Date [...] Date Smoking Tobacco: Every Day Cigarettes 1 50 Started: 02/24/1975 Passive Smoke Exposure: Current Smokeless [...] Consult [place] [facility] [address] [place] [address] Mya Sanders MD [address] [place] [address] Health Maintenance Due Date Last Done Comments [facility]-Depression Screening 1960 [facility]-HIV Screening 1960 [facility]-Hepatitis C Screening 1960 [facility]-Infant/Child/Adol SDOH Screenings 1960 [id number] Vaccine (#1) 1960 [facility]- SDOH Screenings 1978 [facility]-Adult SDOH Screenings 1978 [facility]-DTaP,Tdap,and Td Vaccines (1 - Tdap) 05/03/1979 [facility]-Pneumococcal Vaccine: 50+ Years (1 of 2 - PCV) 05/03/1979 [facility]-Pap Smear 1981 [facility]-Cervical Cancer Screening 1990 [facility]-HPV/Cotest 1990 CT Colonography 2005 Colonoscopy 2005 FIT-DNA 2005 FIT 2005 FOBT 2005 Sigmoidoscopy 2005 [facility]-Colorectal Cancer Screening 2005 Lung Cancer Screening Shared Decision Making 2010 [facility]-Breast Cancer Screening 2010 [facility]-Lung Cancer Screening 2010 [facility]-RSV Vaccine: 60+ Years or (1 - Risk 50-74 years 1-dose series) 2010 [facility]-Zoster Vaccines (1 of 2) 2010 [facility]-Influenza Vaccine (#1) 2024 [facility]-Obesity Intervention Completed 025, 04/23/2024, 04/05/2024, Additional history exists HPV Vaccines (No Doses Required) Completed [facility]-HIB Vaccines Aged Out No longer e [...] patient's age to complete [place] [id number] ANTHEM Care Teams Office Equipment Technician Relationship Specialty Start Date End Date Allison Tony, DRUGLESS PHYSICIAN [address] [place] [address] PCP - General 10/17/23
== END 2025-02-10 23:59 | disposition home or self-care (01) ==
LOC: LAB.DROPOF 02-11 11:02
PROVIDERS: PCP Nurse Practitioner Family; Visit Provider Nurse Practitioner Family
DX: J20.9 Acute bronchitis, unspecified (principal)
CPT/HCPCS: 87631